=== PATIENT | female | born 1965 | race Caucasian/White ===

== ENCOUNTER 2020-12-16 13:56 | Inpatient (IN) | payer BC ==
[2020-12-16] MEDS ORDERED: KETOROLAC 15 MG/ML 1 ML VIAL IVP STA (14:17)
[2020-12-16] MEDS ORDERED: SODIUM CHLORIDE 0.9% 1,000 ML IV STA (14:17)
--- NOTE | 2020-12-16 14:37 | ED ---
Weakness HPI - General Chief complaint: Weakness Stated complaint: Weakness Time Seen by Provider: 12/16/20 14:00 Source: patient, EMS Mode of arrival: EMS Limitations: no limitations - History of Present Illness Initial comments: Patient is a 55-year-old female presenting to the emergency department via EMS with complaints of weakness and increasing over the past week and a half. Patient has extensive history of cervical and lumbar back fusions. She's been dealing with back pain for many years. Her is here with her now on helping with history. states that over the past week and a half she's had trouble walking, unable to get upstairs to use the restroom and were the shower is. She states she normally shuffles around the house and able to get up and down the stairs but this is changed over the past week and a half. Last w crow she did have a fall where she just felt weak and just dropped to the floor. She did not hit her head. She states she was able to get up and then just go to bed. She did not want to be seen at that time. She is complaining of increase in her neck pain over the last 3-4 days. She's been unable to eat or drink and she doesn't have an appetite. The states she will not eat when offered. There has been no fevers or chills, no nausea or vomiting. No chest pain or shortness of breath. She denies any bowel or bladder incontinence. She denies any saddle paresthesias. She is describing some numbness in her lower extremities but she states she's had this for many years. She states only medication she takes is for anxiety. She takes Tylenol for pain, she denies any other drug use. She has no further complaints at this time. - Related Data Home Medications Medication Instructions Recorded Confirmed DULoxetine HCL [Cymbalta] 60 mg PO HS 12/16/20 12/16/20 Allergies Allergy/AdvReac Type Severity Reaction Status Date / Time bupropion [From Zyban] Allergy Rash/Hives Verified 12/16/20 15:18 Review of Systems ROS Statement: Those systems with pertinent positive or pertinent negative responses have been documented in the HPI. ROS Other: All systems not noted in ROS Statement are negative. Past Medical History Additional Past Medical History / Comment(s): Not able to take any INFO History of Any Multi-Drug Resistant Organisms: None Reported Additional Past Surgical History / Comment(s): Not able to take any INFO Past Psychological History: Depression Smoking Status: Unknown if ever smoked Past Alcohol Use History: Unable to Obtain Past Drug Use History: Unable to Obtain General Exam - General Exam Comments Initial Comments: GENERAL: Patient is well-developed and well-nourished. Patient is nontoxic and in mild distress. HEAD: Atraumatic, normocephalic. There is no hematoma, no signs of basal skull fracture. EYES: Pupils equal round and reactive to light, extraocular movements intact, sclera anicteric, conjunctiva are normal. Eyelids were unremarkable. ENT: TMs normal, nares patent, oropharynx clear without exudates. Moist mucous membranes. NECK: Normal range of motion, supple without lymphadenopathy or JVD. She does have some bilateral cervical paraspinal soreness. LUNGS: Unlabored respirations. Breath sounds clear to auscultation bilaterally and equal. No wheezes rales or rhonchi. HEART: Tachycardia rate and rhythm without murmurs, rubs or gallops. ABDOMEN: Soft, nontender, normoactive bowel sounds. No guarding, no rebound. No masses appreciated. : Deferred MUSCULOSKELETAL: Patient has weakness of bilateral lower extremities, decreased active range of motion, strength is 4-5 bilaterally. Patient is barely able to lift legs off the bed. No clubbing or cyanosis. 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 Patient has full active range of motion of bilateral upper extremity. NEUROLOGICAL: Patient is alert and oriented x 3. Motor and sensory are also intact. Cranial nerves II through XII grossly intact. Symmetrical smile. Normal speech. PSYCH: Normal mood, normal affect. SKIN: Warm, Dry, normal turgor, no rashes or lesions noted. Limitations: no limitations Course Vital Signs 12/16/20 12/16/20 12/16/20 14:00 15:05 16:00 Temperature 96.1 F L Pulse Rate 111 H 100 96 Respiratory 20 16 16 Rate Blood Pressure 104/91 115/93 O2 Sat by Pulse 100 99 99 Oximetry 12/16/20 12/16/20 17:00 17:26 Temperature 96.1 F L Pulse Rate 88 100 Respiratory 16 16 Rate Blood Pressure 115/93 115/93 O2 Sat by Pulse 99 99 Oximetry EKG Findings - EKG Comments: EKG Findings:: Sinus tachycardia, biatrial enlargement, nonspecific ST and T- wave abnormalities, no signs of an acute ischemia. No previous to compare. Ventricular rate 111, NJ interval 122, QT 344. Medical Decision Making - Medical Decision Making Patient is a 55-year-old female with history of spinal fusion cervical and lumbar area, presenting for increased weakness over the past week and a half. He has been unable to ambulate for the past few days. Vital signs are stable, no fevers. Patient has a white count of 12.6, lactic acid is 4.4, troponin is negative. We did attempt a straight cath for urine however we were not able to get any urine. I did give her a total of 1.5 L bolus of fluids. I do not believe her lactic acid is elevated due to infection, this is most likely from dehydration. She has not been able to eat or drink over the past few days. CT of head and C-spine show no acute abnormality. Patient will be admitted for weakness, lactic acidosis, dehydration, unable to ambulate. Patient accepted by Dr. Cabrera. I will put ortho on consult. Patient is in agreement with this plan of care. We will keep trying for a urine. Case discussed with Dr. Rae. - Lab Data Result diagrams: 12/16/20 14:37 12/16/20 14:37 Lab Results 12/16/20 12/16/20 12/16/20 Range/Units 14:37 14:37 14:37 WBC 12.6 H (3.8-10.6) k/uL RBC 3.74 L (3.80-5.40) m/uL Hgb 15.0 (11.4-16.0) gm/dL Hct 45.6 (34.0-46.0) % MCV 121.8 H (80.0-100.0) fL MCH 40.1 H (25.0-35.0) pg MCHC 32.9 (31.0-37.0) g/dL RDW 14.7 (11.5-15.5) % Plt Count 193 (150-450) k/uL MPV 10.0 Neutrophils % 85 % Lymphocytes % 8 % Monocytes % 5 % Eosinophils % 1 % Basophils % 0 % Neutrophils # 10.7 H (1.3-7.7) k/uL Lymphocytes # 1.1 (1.0-4.8) k/uL Monocytes # 0.6 (0-1.0) k/uL Eosinophils # 0.1 (0-0.7) k/uL Basophils # 0.0 (0-0.2) k/uL Manual Slide Review Performed Macrocytosis Marked A ESR 2 (0-20) mm/hr PT 10.3 (9.0-12.0) sec INR 1.0 (<1.2) APTT 19.1 L (22.0-30.0) sec Sodium 137 (137-145) mmol/L Potassium 3.9 (3.5-5.1) mmol/L Chloride 103 (98-107) mmol/L Carbon Dioxide 14 L (22-30) mmol/L Anion Gap 20 mmol/L BUN 18 H (7-17) mg/dL Creatinine 0.61 (0.52-1.04) mg/dL Est GFR (CKD-EPI)AfAm >90 (>60 ml/min/1.73 sqM) Est GFR (CKD-EPI)NonAf >90 (>60 ml/min/1.73 sqM) Glucose 126 H (74-99) mg/dL Lactic Ac Sepsis Rflx Plasma Lactic Acid Vadim (0.7-2.0) mmol/L Calcium 9.3 (8.4-10.2) mg/dL Magnesium 1.7 (1.6-2.3) mg/dL Total Bilirubin 1.2 (0.2-1.3) mg/dL AST 86 H (14-36) U/L ALT 52 H (4-34) U/L Alkaline Phosphatase 109 (38-126) U/L Troponin I (0.000-0.034) ng/mL C-Reactive Protein 0.8 (<1.0) mg/dL Total Protein 6.9 (6.3-8.2) g/dL Albumin 3.6 (3.5-5.0) g/dL Lipase 35 (23-300) U/L Coronavirus (PCR) (Not Detectd) 12/16/20 12/16/20 12/16/20 Range/Units 14:37 14:37 14:37 WBC (3.8-10.6) k/uL RBC (3.80-5.40) m/uL Hgb (11.4-16.0) gm/dL Hct (34.0-46.0) % MCV (80.0-100.0) fL MCH (25.0-35.0) pg MCHC (31.0-37.0) g/dL RDW (11.5-15.5) % Plt Count (150-450) k/uL MPV Neutrophils % % Lymphocytes % % Monocytes % % Eosinophils % % Basophils % % Neutrophils # (1.3-7.7) k/uL Lymphocytes # (1.0-4.8) k/uL Monocytes # (0-1.0) k/uL Eosinophils # (0-0.7) k/uL Basophils # (0-0.2) k/uL Manual Slide Review Macrocytosis ESR (0-20) mm/hr PT (9.0-12.0) sec INR (<1.2) APTT (22.0-30.0) sec Sodium (137-145) mmol/L Potassium (3.5-5.1) mmol/L Chloride (98-107) mmol/L Carbon Dioxide (22-30) mmol/L Anion Gap mmol/L BUN (7-17) mg/dL Creatinine (0.52-1.04) mg/dL Est GFR (CKD-EPI)AfAm (>60 ml/min/1.73 sqM) Est GFR (CKD-EPI)NonAf (>60 ml/min/1.73 sqM) Glucose (74-99) mg/dL Lactic Ac Sepsis Rflx Plasma Lactic Acid Vadim 4.4 H* (0.7-2.0) mmol/L Calcium (8.4-10.2) mg/dL Magnesium (1.6-2.3) mg/dL Total Bilirubin (0.2-1.3) mg/dL AST (14-36) U/L ALT (4-34) U/L Alkaline Phosphatase (38-126) U/L Troponin I <0.012 (0.000-0.034) ng/mL C-Reactive Protein (<1.0) mg/dL Total Protein (6.3-8.2) g/dL Albumin (3.5-5.0) g/dL Lipase (23-300) U/L Coronavirus (PCR) Not Detected (Not Detectd) 12/16/20 Range/Units 14:55 WBC (3.8-10.6) k/uL RBC (3.80-5.40) m/uL Hgb (11.4-16.0) gm/dL Hct (34.0-46.0) % MCV (80.0-100.0) fL MCH (25.0-35.0) pg MCHC (31.0-37.0) g/dL RDW (11.5-15.5) % Plt Count (150-450) k/uL MPV Neutrophils % % Lymphocytes % % Monocytes % % Eosinophils % % Basophils % % Neutrophils # (1.3-7.7) k/uL Lymphocytes # (1.0-4.8) k/uL Monocytes # (0-1.0) k/uL Eosinophils # (0-0.7) k/uL Basophils # (0-0.2) k/uL Manual Slide Review Macrocytosis ESR (0-20) mm/hr PT (9.0-12.0) sec INR (<1.2) APTT (22.0-30.0) sec Sodium (137-145) mmol/L Potassium (3.5-5.1) mmol/L Chloride (98-107) mmol/L Carbon Dioxide (22-30) mmol/L Anion Gap mmol/L BUN (7-17) mg/dL Creatinine (0.52-1.04) mg/dL Est GFR (CKD-EPI)AfAm (>60 ml/min/1.73 sqM) Est GFR (CKD-EPI)NonAf (>60 ml/min/1.73 sqM) Glucose (74-99) mg/dL Lactic Ac Sepsis Rflx Y Plasma Lactic Acid Vadim (0.7-2.0) mmol/L Calcium (8.4-10.2) mg/dL Magnesium (1.6-2.3) mg/dL Total Bilirubin (0.2-1.3) mg/dL AST (14-36) U/L ALT (4-34) U/L Alkaline Phosphatase (38-126) U/L Troponin I (0.000-0.034) ng/mL C-Reactive Protein (<1.0) mg/dL Total Protein (6.3-8.2) g/dL Albumin (3.5-5.0) g/dL Lipase (23-300) U/L Coronavirus (PCR) (Not Detectd) Disposition Clinical Impression: Weakness, Unable to ambulate, Lactic acidosis, Dehydration Disposition: ADMITTED IP TO THIS [facility] Condition: Stable Decision Date: 12/16/20 Decision Time: 16:09
[2020-12-16 14:44] LABS: Basophils % (A) 0 %; Eosinophils # (A) 0.1 k/uL (0-0.7); Eosinophils % (A) 1 %; HCT 45.6 % (34.0-46.0); Lymphocytes # (A) 1.1 k/uL (1.0-4.8); Lymphocytes % (A) 8 %; MCH 40.1 pg (25.0-35.0); MCHC 32.9 g/dL (31.0-37.0); MCV 121.8 fL (80.0-100.0); Macrocytosis Marked; Monocytes # (A) 0.6 k/uL (0-1.0); Monocytes % (A) 5 %; Neutrophils # (A) 10.7 k/uL (1.3-7.7); Neutrophils % (A) 85 %; Platelet Count 193 k/uL (150-450); RBC 3.74 m/uL (3.80-5.40); RDW 14.7 % (11.5-15.5); WBC 12.6 k/uL (3.8-10.6)
[2020-12-16 14:54] LABS: ALT 52 U/L (4-34); AST 86 U/L (14-36); African American GFR (CKD) >90 (>60 ml/min/1.73 sqM); Albumin 3.6 g/dL (3.5-5.0); Alkaline Phosphatase 109 U/L (38-126); Anion Gap 20 mmol/L; Blood Urea Nitrogen 18 mg/dL (7-17); C Reactive Protein 0.8 mg/dL (<1.0); Calcium 9.3 mg/dL (8.4-10.2); Carbon Dioxide 14 mmol/L (22-30); Chloride 103 mmol/L (98-107); Glucose 126 mg/dL (74-99); Lipase 35 U/L (23-300); Magnesium 1.7 mg/dL (1.6-2.3); Non-African American GFR(CKD) >90 (>60 ml/min/1.73 sqM); Potassium 3.9 mmol/L (3.5-5.1); Sodium 137 mmol/L (137-145); Total Bilirubin 1.2 mg/dL (0.2-1.3); Total Protein 6.9 g/dL (6.3-8.2)
[2020-12-16] MEDS ORDERED: SODIUM CHLORIDE 0.9% 500 ML 500 ML IV STA (15:03)
[2020-12-16 15:13] LABS: Prothrombin Time 10.3 sec (9.0-12.0)
[2020-12-16 15:14] LABS: Partial Thromboplastin Time 19.1 sec (22.0-30.0)
[2020-12-16 15:35] LABS: Erythrocyte Sedimentation Rate 2 mm/hr (0-20)
--- NOTE | 2020-12-16 15:39 | CT ---
EXAMINATION TYPE: CT brain cspine wo con DATE OF EXAM: 12/16/2020 COMPARISON: NONE HISTORY: Fall injury with weakness and neck pain. CT DLP: 1288.2 mGycm. Automated Exposure Control for Dose Reduction was Utilized. TECHNIQUE: CT scan of the head and cervical spine are performed without contrast. FINDINGS: There is no acute intracranial hemorrhage or midline shift identified. Mild ventricular a nd sulcal prominence. The globes are intact and the visualized sinuses are clear. The calvarium is i ntact. Cervical spine is visualized in its entirety from C1 through upper thoracic levels and demonstrates s atisfactory alignment without evidence of acute fracture or dislocation. Prevertebral soft tissue ap pears within normal limits. The C1-C2 articulation is within normal limits on the coronal images. A nterior fusion plate and artificial disc material C5-C7 levels. Moderate disc space narrowing with pr ominent spurring C4-C5 level. Axial images show multilevel uncovertebral facet degenerative changes c ontributing to multilevel bilateral neural foraminal narrowing. Thyroid gland appears within normal l imits. Lung apices show moderate emphysematous change but no pneumothorax. IMPRESSION: 1. There is no acute fracture or dislocation evident in the cervical spine. 2. No acute intracranial hemorrhage or midline shift is seen.
[2020-12-16] MEDS ORDERED: ACETAMINOPHEN TAB 325 MG TAB PO PRN (16:05)
[2020-12-16] MEDS ORDERED: MORPHINE SULFATE 4 MG/ML SYRINGE IV PRN (16:05)
[2020-12-16] MEDS ORDERED: NALOXONE 0.4 MG/ML 1 ML VIAL IV PRN (16:05)
[2020-12-16] MEDS ORDERED: IBUPROFEN 400 MG TAB PO PRN (16:05)
[2020-12-16] MEDS ORDERED: ONDANSETRON 4 MG/2 ML VIAL IVP PRN (16:05)
[2020-12-16 17:25] LABS: Appearance,Urine Clear (Clear); Bacteria,Urine Many /hpf; Bilirubin,Urine 1+ (Negative); Blood,Urine Negative (Negative); Color,Urine Dark Brown; Glucose,Urine (UA) Negative (Negative); Hyaline Casts,Urine 7 /lpf (0-2); Ketones,Urine 4+ (Negative); Leukocyte Esterase,Urine Small (Negative); Mucus,Urine Occasional /hpf; Nitrite,Urine Positive (Negative); PH, Urine 5.5 (5.0-8.0); Protein,Urine 1+ (Negative); RBC,Urine 1 /hpf (0-5); Specific Gravity,Urine 1.022 (1.001-1.035); Squamous Epithelial Cell,Urine <1 /hpf (0-4); WBC,Urine 4 /hpf (0-5)
[2020-12-16] MEDS: SODIUM CHLORIDE 0.9% 1,000 ML IV SCH (18:27)
--- NOTE | 2020-12-16 20:46 | P.HPIM ---
History of Present Illness H&P Date: 12/16/20 Chief Complaint: Difficulty walking History of presenting complaint: This is a 55-year-old patient follows with . Patient is accompanied by her . Patient's had back pain problem for years. She had a cervical spine surgery about 3 years ago and number spine surgery about [address] Sanchez. At her baseline patient does walk slowly without any support. About 10 days ago patient started complaining of pain in the middle of the back. Also noticed progressive weakness of the legs. Her hobbies ago she started having increasing neck pain. also notices same time having some slurred speech. She's always had some tremor which is not exacerbated. Denies any change in bowel or bladder pattern. No trouble swallowing Review of systems: GEN.: Tired EYES: None HEENT: None NECK: None RESPIRATORY: None CARDIOVASCULAR: None GASTROINTESTINAL: None GENITOURINARY: None MUSCULOSKELETAL: Some joint pains LYMPHATICS: None HEMATOLOGICAL: None PSYCHIATRY: None NEUROLOGICAL: As above Past medical history to include: Cervical spine or lumbar surgery. Chronic kidney dysfunction Social history: Smokes half a pack a day for many years. Family history: Reviewed, noncontributory to presentation Physical examination: VITAL SIGNS: 96.1, 100, 16, 115/93, 99% room air GENERAL: BMI 23.2, laying in bed, tired. EYES: Pupils equal. Conjunctiva normal. HEENT: External appearance of nose and ears normal, oral cavity grossly normal. NECK: JVD not raised; masses not palpable. HEART: First and second heart sounds are normal; no edema. LUNGS:[ Respiratory rate normal; decreased breath sounds. ABDOMEN: Soft, nontender, liver spleen not palpable, no masses palpable. PSYCH: Alert and oriented x3; mood and affect anxiousl. NEUROLOGICAL: [Cranial nerves grossly intact; no facial asymmetry, tremors worse on the right side. Intermittent. Straight leg raising on the left side about 50 on the right side about 50. Decreased sensation in both lower extremity. Reflexes are not hyperactive. Decreased power in both the handgrip. Decreased sensation in the hand. LYMPHATICS: No lymph nodes palpable in the axilla and neck INVESTIGATIONS, reviewed in the clinical context: WBC 12.6 hemoglobin 15 platelets 193 potassium 3.9 creatinine 0.61 lactic acid 4.4 AST 86 ALT 52 troponin I less than 0.012 UA positive for nitrite, esterase, bacteria Coronavirus [PCR]-not detected EKG tracing personally reviewed by me shows sinus rhythm nonspecific ST segment changes Computed tomography scan of the brain C-spine without contrast: Anterior fusion plate and artificial disc material C5-C7 levels. Moderate disc space narrowing with prominent spurring C4-C5 level. Moderate impression minutes changes. No acute fracture or dislocation reported. Assessment and plan: -This is a patient is had cervical spine surgery about 3 years ago and lumbar spine surgery about 8 years ago. At her baseline patient walks slowly. Patient presents now with 10 days of mid thoracic pain and 2-1/2 days of increasing cervical spine pain. Patient is gait has become progressively weaker and barely able to walk now. Patient has decreased sensation. 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 Interestingly patient also got some slurring of the speech. Computed tomography scan is unremarkable. Patient be placed on aspirin. Consultation made to neurology and neurosurgery Dr. Gee to hold the patient is well known. -Acute on chronic gait dysfunction. Fall precautions -Chronic tickle dependence patient cigarette smoker Nicotine patch -Emphysema in a current smoker, asymptomatic -Macrocytosis Will check B12 and iron studies Plan care was discussed with the patient and the of the bedside. Consultation to neurosurgery Dr. Gee. Lovenox for DVT prophylaxis. Pain control. Bed rest. Patient will need further studies of the spine and lumbar spine and the brain. The meantime will also order carotid Doppler 2-D echocardiogram. Given the complexity and severity of patient's condition expect the patient to be in the hospital at least for 2 overnights Past Medical History Additional Past Medical History / Comment(s): Not able to take any INFO History of Any Multi-Drug Resistant Organisms: None Reported Additional Past Surgical History / Comment(s): Not able to take any INFO Past Psychological History: Depression Smoking Status: Unknown if ever smoked Past Alcohol Use History: Unable to Obtain Past Drug Use History: Unable to Obtain Medications and Allergies Home Medications Medication Instructions Recorded Confirmed Type DULoxetine HCL [Cymbalta] 60 mg PO HS 12/16/20 12/16/20 History Allergies Allergy/AdvReac Type Severity Reaction Status Date / Time bupropion [From Zyban] Allergy Rash/Hives Verified 12/16/20 15:18 Physical Exam Vitals: Vital Signs Temp Pulse Pulse Resp BP BP Pulse Ox 12/16/20 20:07 98.4 F 114 H 18 134/85 99 12/16/20 18:16 97.7 F 112 H 16 136/86 97 12/16/20 17:26 96.1 F L 100 16 115/93 99 12/16/20 17:00 88 16 115/93 99 12/16/20 16:00 96 16 99 12/16/20 15:05 100 16 115/93 99 12/16/20 14:00 96.1 F L 111 H 20 104/91 100 Intake and Output 12/16/20 12/16/20 12/16/20 06:59 14:59 22:59 Other: # Voids 1 # Emeses 1 Weight 61.235 kg Results CBC & Chem 7: 12/16/20 14:37 12/16/20 14:37 Labs: Abnormal Lab Results - Last 24 Hours (Table) 12/16/20 12/16/20 12/16/20 Range/Units 14:37 14:37 14:37 WBC 12.6 H (3.8-10.6) k/uL RBC 3.74 L (3.80-5.40) m/uL MCV 121.8 H (80.0-100.0) fL MCH 40.1 H (25.0-35.0) pg Neutrophils # 10.7 H (1.3-7.7) k/uL Macrocytosis Marked A APTT 19.1 L (22.0-30.0) sec Carbon Dioxide 14 L (22-30) mmol/L BUN 18 H (7-17) mg/dL Glucose 126 H (74-99) mg/dL Plasma Lactic Acid Vadim (0.7-2.0) mmol/L AST 86 H (14-36) U/L ALT 52 H (4-34) U/L Urine Protein (Negative) Urine Ketones (Negative) Urine Nitrite (Negative) Urine Bilirubin (Negative) Ur Leukocyte Esterase (Negative) Urine Bacteria (None) /hpf Hyaline Casts (0-2) /lpf Urine Mucus (None) /hpf 12/16/20 12/16/20 12/16/20 Range/Units 14:37 17:14 17:15 WBC (3.8-10.6) k/uL RBC (3.80-5.40) m/uL MCV (80.0-100.0) fL MCH (25.0-35.0) pg Neutrophils # (1.3-7.7) k/uL Macrocytosis APTT (22.0-30.0) sec Carbon Dioxide (22-30) mmol/L BUN (7-17) mg/dL Glucose (74-99) mg/dL Plasma Lactic Acid Vadim 4.4 H* 3.0 H* (0.7-2.0) mmol/L AST (14-36) U/L ALT (4-34) U/L Urine Protein 1+ H (Negative) Urine Ketones 4+ H (Negative) Urine Nitrite Positive H (Negative) Urine Bilirubin 1+ H (Negative) Ur Leukocyte Esterase Small H (Negative) Urine Bacteria Many H (None) /hpf Hyaline Casts 7 H (0-2) /lpf Urine Mucus Occasional H (None) /hpf
[2020-12-16] MEDS: DULoxetine HCL 60 MG CAPSULE.DR PO SCH (21:10)
[2020-12-16] MEDS: ALPRAZolam 0.5 MG TAB PO PRN (21:10)
[2020-12-16] MEDS: ENOXAPARIN 40 MG/0.4 ML SYRINGE SQ SCH (21:12)
[2020-12-16] MEDS: NICOTINE 14MG/24HR PATCH TRANSDERM SCH (21:20)
--- NOTE | 2020-12-16 23:42 | US ---
EXAMINATION TYPE: US carotid duplex BILAT DATE OF EXAM: 12/16/2020 COMPARISON: CT CLINICAL HISTORY: Slurred speech. Slurred speech. Smoker. EXAM MEASUREMENTS: RIGHT: Peak Systolic Velocity (PSV) cm/sec ----- Right CCA: 52.9 ----- Right ICA: 82.3 ----- Right ECA: 67.8 ICA/CCA ratio: 1.6 RIGHT: End Diastole cm/sec ----- Right CCA: 14.4 ----- Right ICA: 32.5 ----- Right ECA: 18.7 LEFT: Peak Systolic Velocity (PSV) cm/sec ----- Left CCA: 50.7 ----- Left ICA: 61.4 ----- Left ECA: 52.8 ICA/CCA ratio: 1.2 LEFT: End Diastole cm/sec ----- Left CCA: 15.9 ----- Left ICA: 25.1 ----- Left ECA: 16.1 VERTEBRALS (direction of flow): Right Vertebral: Antegrade Left Vertebral: Unable to visualize at this time. Rhythm: ?Tachycardia appearance IMPRESSION: No flow is identified in the left vertebral artery. The images and measurements suggest less than 20% stenosis in both internal carotid arteries. No sign ificant plaque formation. Criteria for Assigning % of Stenosis / Diameter reduction (Estimation based on the indirect measurements of the internal carotid artery velocities (ICA PSV). 1. Normal (no stenosis)=ICA PSV < 125 cm/s: ratio < 2.0: ICA EDV<40 cm/s. 2. Less than 50% stenosis=ICA PSV < 125 cm/s: ratio < 2.0: ICA EDV<40 cm/s. 3. 50 to 69% stenosis=ICA PSV of 125 to 230 cm/s: ration 2.0 ? 4.0: ICA EDV 40-100 cm/s. 4. Greater than 70% stenosis to near occlusion= ICA PSV > 230 cm/s: ratio > 4.0: ICA EDV > 100 cm/s. 5. Near occlusion= ICA PSV velocities may be low or undetectable: variable ratio and ICA EDV. 6. Total occlusion=unable to detect flow.
[2020-12-17] MEDS: KETOROLAC 15 MG/ML 1 ML VIAL IVP PRN ×3 (00:28→20:30)
[2020-12-17] MEDS: SODIUM CHLORIDE 0.9% 1,000 ML IV SCH ×2 (06:54→17:58)
[2020-12-17] MEDS: ENOXAPARIN 40 MG/0.4 ML SYRINGE SQ SCH (08:04)
[2020-12-17] MEDS: NICOTINE 14MG/24HR PATCH TRANSDERM SCH (08:04)
--- NOTE | 2020-12-17 08:55 | P.CNOR ---
History of Present Illness - [facility] Consult date: 12/17/20 Consult reason: other History of present illness: The patient Is a 55-year-old female who is now having new onset over the past 10-14 days of global weakness. I had seen the patient more than 10 years ago at which time she was having significant lumbar issues with stenosis and lower extremity radiculopathy. The patient underwent surgical intervention on her lumbar spine with our service over 10 years ago and says that she did very well with that and was able to go to the [place] and do hiking and spent time with her family without significant restrictions. She says that about 3 years ago she had surgery on her cervical spine at a different location with another service after she had an injury at her neck after bending over. She says that her neck never really felt better after that. Nonetheless she was able to mobilize and walk about. She says that just 2 weeks ago she was able to walk up and down the stairs. She has been able to get around without any assistance until the past week and a half or so. She said that she had sudden onset of weakness at her legs with any prolonged standing and moving. She says that she has had some issues and her upper extremities which have been worsening for her as well. She feels weak at her bilateral upper and lower extremities. She feels that she is slurring her speech. She denies any vision changes. She denies any changes in her medicati ons or new drug use. She says that she has been having some pain at her neck but that is moderate and adequately controlled for her. She denies changes in bowel bladder function. She denies any shortness of breath or chest pain. She says her mouth feels very dry and she has difficulty moving her tongue around. Review of Systems As stated in HPI. She denies any fevers chills. She denies any new drug use or change in her medication. She normally was a community and later without any assistance however now she is unable to stand up on her own over the past 1-2 weeks and she feels is worsening for her. She denies any changes in bowel bladder function. She denies any chest pain or shortness of breath. She admits to slurred speech. She denies any vision changes. Denies any hearing changes. Past Medical History Past Medical History: Musculoskeletal Disorder Additional Past Medical History / Comment(s): Lumbar surgery over [address] Sanchez for which she feels that she was doing well. Cervical spine surgery possibly 3 years ago at outside institution for which she feels she had minimal benefit. History of Any Multi-Drug Resistant Organisms: None Reported Past Surgical History: Back Surgery, Section Additional Past Surgical History / Comment(s): Not able to take any INFO Past Anesthesia/Blood Transfusion Reactions: No Reported Reaction Past Psychological History: Depression Smoking Status: Unknown if ever smoked Past Alcohol Use History: Unable to Obtain Past Drug Use History: Unable to Obtain Medications and Allergies Home Medications Medication Instructions Recorded Confirmed Type DULoxetine HCL [Cymbalta] 60 mg PO HS 12/16/20 12/16/20 History Allergies Allergy/AdvReac Type Severity Reaction Status Date / Time bupropion [From Zyban] Allergy Rash/Hives Verified 12/16/20 15:18 Physical Examination Osteopathic Statement: *. No significant issues noted on an osteopathic structural exam other than those noted in the History and Physical/Consult. - C Spine: dermatomal strength & reflexes bilateral Shoulder strength: flexion: 3/5 (Bilateral upper extremities her shoulders have some weakness worse on the left than the right. 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 She is able lift her legs up off the bed but with effort. She's not able to sustain against force. Her right lower extremity has 2/5 dorsiflexion. Left lower extremity has 4-5 dorsiflexion. There is no clonus. She has 3-4 out of 5 knee extension b) Strength: knee extension: 3/5 (3-4 out of 5 knee extension bilaterally) Strength: ankle dorsiflexion: 2/5 (Right lower extremity has 2 out of 5 dorsiflexion left lower extremity has 4-5 dorsiflexion) Reflexes: knee reflex: grade 1 (No hyperreflexia and no clonus) Other reflexes: Babinski's: negative, clonus: negative Nerve tests: straight leg raising tests: negative, contralateral straight leg raising tests: negative Results - Labs Labs: Abnormal Lab Results - Last 24 Hours (Table) 12/16/20 12/16/20 12/16/20 Range/Units 14:37 14:37 14:37 WBC 12.6 H (3.8-10.6) k/uL RBC 3.74 L (3.80-5.40) m/uL MCV 121.8 H (80.0-100.0) fL MCH 40.1 H (25.0-35.0) pg Neutrophils # 10.7 H (1.3-7.7) k/uL Macrocytosis Marked A APTT 19.1 L (22.0-30.0) sec Carbon Dioxide 14 L (22-30) mmol/L BUN 18 H (7-17) mg/dL Glucose 126 H (74-99) mg/dL Plasma Lactic Acid Vadim (0.7-2.0) mmol/L AST 86 H (14-36) U/L ALT 52 H (4-34) U/L Urine Protein (Negative) Urine Ketones (Negative) Urine Nitrite (Negative) Urine Bilirubin (Negative) Ur Leukocyte Esterase (Negative) Urine Bacteria (None) /hpf Hyaline Casts (0-2) /lpf Urine Mucus (None) /hpf 12/16/20 12/16/20 12/16/20 Range/Units 14:37 17:14 17:15 WBC (3.8-10.6) k/uL RBC (3.80-5.40) m/uL MCV (80.0-100.0) fL MCH (25.0-35.0) pg Neutrophils # (1.3-7.7) k/uL Macrocytosis APTT (22.0-30.0) sec Carbon Dioxide (22-30) mmol/L BUN (7-17) mg/dL Glucose (74-99) mg/dL Plasma Lactic Acid Vadim 4.4 H* 3.0 H* (0.7-2.0) mmol/L AST (14-36) U/L ALT (4-34) U/L Urine Protein 1+ H (Negative) Urine Ketones 4+ H (Negative) Urine Nitrite Positive H (Negative) Urine Bilirubin 1+ H (Negative) Ur Leukocyte Esterase Small H (Negative) Urine Bacteria Many H (None) /hpf Hyaline Casts 7 H (0-2) /lpf Urine Mucus Occasional H (None) /hpf H & H 12/16/20 Range/Units 14:37 Hgb 15.0 (11.4-16.0) gm/dL Hct 45.6 (34.0-46.0) % Coagulation 12/16/20 Range/Units 14:37 INR 1.0 (<1.2) Result Diagrams: 12/16/20 14:37 12/16/20 14:37 - Diagnostic results CT scan - cervical: report reviewed, image reviewed (There is a cervical and had computed tomography scan which reports show no acute change. The patient has prior fusion at C5 6 C6 7 which appears to be solid. There is some adjacent lev el degeneration and osteophytic spurring at C4 5.) Assessment and Plan Assessment: Global upper and lower extremity weakness, acute Slurred speech, acute History of cervical fusion approximately 3 years ago at outside institution at C5 6 C6 7 which appears to be stable history of lumbar surgery approximately 10 years ago which was done here with our service and had been doing well Plan: Global upper and lower extremity weakness, acute Slurred speech, acute History of cervical fusion approximately 3 years ago at outside institution at C5 6 C6 7 which appears to be stable history of lumbar surgery approximately 10 years ago which was done here with our service and had been doing well It is difficult to specifically delineate the nature of the patient's right lower extremity weakness and slurred speech. She had computed tomography scan of her brain which showed no acute intracranial hemorrhage or midline shift. He r cervical spine did not show any new change but did show apparent stable fusion from C5 to C7 with some degeneration at C4 5. The computed tomography scan is not fully ascertain her neurologic structures of her cervical spine and I think with her acute changes that further imaging with MRI of the cervical spine is necessary. Many of her symptoms could be considered myelopathic in nature an MRI would help to evaluate this symptoms more fully. Cervical spine would not account for her changes with her speech however and she is counseled for acute workup with neurology for further workup and evaluation and treatment. She has bilateral lower extremity weakness. She is not having any cauda equina type symptoms in terms of her saddle or bowel or bladder function however I think that urgent evaluation of her lumbar spine is or to given her weakness and history of surgery. We'll order a new x-rays and MRI of lumbar spine as well. She had been started on aspirin by medicine service and I think it may be helpful to start on steroid medication to see if we can help her neurologic function. We will order this if it is okay with medicine and neurology service. We will continue to follow patient closely. Time with Patient: Greater than 30
--- NOTE | 2020-12-17 10:24 | XR ---
EXAMINATION TYPE: XR cervical spine limited DATE OF EXAM: 12/17/2020 TECHNIQUE: Frontal, lateral, and open mouth view of the cervical spine are obtained. HISTORY: h/o cervical fusion/ new weakness COMPARISON: CT one day earlier FINDINGS: Persistent anterior fusion plate and artificial disc material C5-C7 levels. Slight stable g rade 1 retrolisthesis C4 on C5. Moderate disc space narrowing C3-C4 and C4-C5 levels. Prominent anter ior spur inferior C4 level. Alignment stable and straightened. IMPRESSION: As above.
--- NOTE | 2020-12-17 10:28 | XR ---
EXAMINATION TYPE: XR lumbar spine 2 or 3V DATE OF EXAM: 12/17/2020 COMPARISON: None HISTORY: Lumbar fusion TECHNIQUE: 4 view lumbar spine FINDINGS: Pedicle screws are present L5-S1. Disc spacer may be present L5-S1. L1-L4 pedicles are inta ct. There are 5 lumbar-type vertebral bodies. There may be an S1-S2 disc space. Disc heights appear p reserved. Small Schmorl's node may be a L3. IMPRESSION: 1. Postsurgical changes with pedicle screws and a disc spacer in the lower lumbar spine.
[2020-12-17] MEDS: FAMOTIDINE 20 MG TAB PO SCH ×2 (11:30→20:31)
[2020-12-17] MEDS: methylPREDNISolone SOD SUCCI 125 MG/2 ML VIAL IV SCH ×2 (11:31→20:28)
--- NOTE | 2020-12-17 12:35 | ECHOF ---
Referral Reason:Rule out thrombus MEASUREMENTS -------- HEIGHT: 162.6 cm WEIGHT: 61.2 kg BP: IVSd: 0.9 cm (0.6 - 1.1) LVIDd: 3.3 cm (3.9 - 5.3) LVPWd: 1.1 cm (0.6 - 1.1) IVSs: 1.1 cm LVIDs: 2.2 cm LVPWs: 1.5 cm MV E Néstor: 0.70 m/s MV DecT: 223 ms MV A Néstor: 1.18 m/s MV E/A Ratio: 0.59 RAP: 5.00 mmHg RVSP: 10.09 mmHg FINDINGS -------- Sinus rhythm. This was a techncally difficult study with suboptimal views, , Lumason utilized for enhancement of im ages. LV size, wall thickness and systolic function are normal, with an EF greater than 55%. The left john tricular size is normal. The right ventricle is normal in size. The left atrial size is normal. The right atrial size is normal. 5.0mg OF Lumason UTLIZED: 2 OR MORE WALL SEGMENTS NOT VISUALIZED. The aortic valve was not well visualized. The mitral valve was not well visualized. The tricuspid valve was not well visualized. The pulmonic valve was not well visualized. The aortic root size is normal. There is no pericardial effusion. CONCLUSIONS -------- 1. This was a techncally difficult study with suboptimal views, , Lumason utilized for enhancement of images. 2. LV size, wall thickness and systolic function are normal, with an EF greater than 55%. 3. The left ventricular size is normal. 4. The right ventricle is normal in size. 5. The left atrial size is normal. 6. The right atrial size is normal. 7. 5.0mg OF Lumason UTLIZED: 2 OR MORE WALL SEGMENTS NOT VISUALIZED. 8. The aortic root size is normal. 9. There is no pericardial effusion. COMMERCIAL ANALYST: Amie Lu RDCS
--- NOTE | 2020-12-17 12:39 | P.CNNES ---
History of Present Illness Consult date: 12/17/20 Requesting physician: Niko Cabrera Reason for Consult: Slurred speech History of Present Illness: Patient is a 55-year-old female came to the hospital by ambulance yesterday at 1:56 PM. Came to the hospital for increasing weakness over the past week and a half. Patient has extensive history of cervical and lumbar back fusions. She has been dealing with back pain for many years. Patient states that she started having weakness of her body, left side slightly more than the right about 1-1/2 weeks ago. Also later slurred speech about a week ago. She denies any problem with vision. Patient states that she always used to walk with a shuffle but her got her wheelchair about 4 days ago as she was not walking very well. She has been using cane and sometimes for the last 2 months. When she was getting up stairs, she could not lift her left leg up. Patient states that she was very afraid of Covid 19, therefore did not seek medical attention earlier. In fact patient states that she has not left her home for last 3 years. Patient denies diabetes. Patient states that yesterday her neck was hurting bad, but today everything is hurting also pointing to the clavicular region bilaterally. Patient complains of severe constipation, also complains of pain in the suprapubic and left hypogastric region. Patient also has decrease frequency of urine, which she attributes to dehydration and lack of fluid intake. Patient's vitals on arrival blood pressure 104/91, pulse rate 111, temperature 96.1. Computed tomography scan of head showed no acute intracranial hemorrhage or midline shift. CT of the cervical spine showed no fracture or dislocation. EKG shows sinus tachycardia with biatrial enlargement. Nonspecific ST and T- wave abnormality. Carotid Doppler showed less than 20% stenosis in both ICA. Antegrade flow in the right vertebral artery, no flow seen in the left vertebral artery. Blood test shows normal hemoglobin, WBC 12.6, platelets 193. Patient has severe macrocytosis of 121.8. PT/PTT normal. Electrolytes are normal, renal functions normal. AST 86, ALT 52. Troponin negative. UA positive nitrite, small amount of leukocyte Estrace. Bautista virus PCR negative. Patient takes Cymbalta 60 mg daily. She does not take any antiplatelet medication. Patient lives with her . Denies diabetes. She has smoked 2-3 pack per day for 14 years, cutback to half a pack a day for last 3 weeks. Denies hypertension. Patient has 2 children who live close by. Review of Systems As mentioned above in detailed in HPI. Achiness significant gait dysfunction. Ataxia. Denies any chest pain, shortness of breath double vision loss of vision hearing loss, hoarseness. She has dry mouth. Decrease appetite. Past Medical History Past Medical History: Musculoskeletal Disorder Additional Past Medical History / Comment(s): Lumbar surgery over [address] Sanchez for which she feels that she was doing well. Cervical spine surgery possibly 3 years ago at outside institution for which she feels she had minimal benefit. History of Any Multi-Drug Resistant Organisms: None Reported Past Surgical History: Back Surgery, Section Additional Past Surgical History / Comment(s): Not able to take any INFO Past Anesthesia/Blood Transfusion Reactions: No Reported Reaction Past Psychological History: Depression Smoking Status: Unknown if ever smoked Past Alcohol Use History: Unable to Obtain Past Drug Use History: Unable to Obtain Medications and Allergies Home Medications Medication Instructions Recorded Confirmed Type DULoxetine HCL [Cymbalta] 60 mg PO HS 12/16/20 12/16/20 History Allergies Allergy/AdvReac Type Severity Reaction Status Date / Time bupropion [From Zyban] Allergy Rash/Hives Verified 12/16/20 15:18 Physical Examination - Vital Signs Vital Signs: Vital Signs Temp Pulse Pulse Resp BP BP Pulse Ox 12/17/20 05:00 97.6 F 120 H 18 112/79 98 12/16/20 20:07 98.4 F 114 H 18 134/85 99 12/16/20 18:16 97.7 F 112 H 16 136/86 97 12/16/20 17:26 96.1 F L 100 16 115/93 99 12/16/20 17:00 88 16 115/93 99 12/16/20 16:00 96 16 99 12/16/20 15:05 100 16 115/93 99 12/16/20 14:00 96.1 F L 111 H 20 104/91 100 Intake and Output 12/16/20 12/17/20 12/17/20 22:59 06:59 14:59 Other: Voiding Method Bedpan # Voids 1 2 # Bowel Movements 2 # Emeses 1 Weight 61.235 kg Patient is a middle aged female, in no acute distress. Patient is alert and awake, fairly sharp, but appears somewhat slow to respond. She appears generalized weak. Her mouth is dry and lips are slightly chapped. She has very poor dentition. Tongue is also dry. Patient is alert awake oriented to time place and person. Speech and language functions are normal. Attention, concentration and fund of knowledge is adequate. On cranial examination, pupils are round and reacting to light, visual ely are full on confrontation with no neglect on double simultaneous deletion, e xtraocular muscles are intact with no nystagmus. Face is symmetric, tongue protrudes to the midline. Palatal elevation and sensation normal, hearing and shoulder shrug normal, facial sensation normal. Shoulder shrug normal. On muscle strength testing, patient has right pronator drift. Patient appears generalized weak. However right/left deltoid 5-/4+5-, biceps 5/5, triceps 5/5, medication coordinator 5/5-. In the lower limbs hip flexion 3+4/3+4, hip adduction 5-/5-, hip abduction 4+/4+ knee extension 5/5, ankle dorsiflexion 5-/5-. Deep tendon reflexes are almost absent, and plantars are downgoing. Sensory to touch is severely decreased from toes although the up to upper thigh region bilaterally. Cerebellar function showed ataxia for [id number] as well as [id number] testing bilaterally, left side is much worse than right. Tone and bulk of muscles is overall decreased. Gait deferred. On general examination, there is no carotid bruit or murmur, S1-S2 audible. Abdomen is soft nontender. Chest is clear. Peripheral pulses are present. No edema. Results - Laboratory Findings CBC and BMP: 12/16/20 14:37 12/16/20 14:37 Abnormal Lab Findings: Abnormal Labs 12/16/20 12/16/20 12/16/20 14:37 14:37 14:37 WBC 12.6 H RBC 3.74 L MCV 121.8 H MCH 40.1 H Neutrophils # 10.7 H Macrocytosis Marked A APTT 19.1 L Carbon Dioxide 14 L BUN 18 H Glucose 126 H Plasma Lactic Acid Vadim AST 86 H ALT 52 H Urine Protein Urine Ketones Urine Nitrite Urine Bilirubin Ur Leukocyte Esterase Urine Bacteria Hyaline Casts Urine Mucus 0512/16/20 12/16/20 14:37 17:14 17:15 WBC RBC MCV MCH Neutrophils # Macrocytosis APTT Carbon Dioxide BUN Glucose Plasma Lactic Acid Vadim 4.4 H* 3.0 H* AST ALT Urine Protein 1+ H Urine Ketones 4+ H Urine Nitrite Positive H Urine Bilirubin 1+ H Ur Leukocyte Esterase Small H Urine Bacteria Many H Hyaline Casts 7 H Urine Mucus Occasional H Assessment and Plan Assessment: * 55-year-old female with subacute (1-1/2 week) history of progressive bilateral upper and lower extremity weakness/ataxia, left side worse than right, and some dysarthria. Patient also has severe sensory deficits in the legs all the way up to L2 dermatome. Rule out CVA, spinal cord compression, transverse myelitis, multiple sclerosis or other pathology. * Severe macrocytosis. Rule out B12 and folate deficiency. * Acute UTI * History of multiple back surgeries. Plan: * Patient has been seen by orthopedic surgery and MRI of the cervical and lumbar spines have been initiated. We will also add MRI of the brain with and without contrast to rule out CVA and, rule out demyelinating disease like multiple sclerosis. * B12, folate, TSH, MMA, B6. Also check KUMAR, CK, A1c, CARMELA, Lyme, Sjogren's and RPR. * We will follow.
[2020-12-17] MEDS: ALPRAZolam 0.5 MG TAB PO PRN ×2 (16:52→20:30)
--- NOTE | 2020-12-17 19:29 | P.PN ---
Progress Note - Text Progress Note Date: 12/17/20 Chief Complaint: Difficulty walking History of presenting complaint: This is a 55-year-old patient follows with . Patient is accompanied by her . Patient's had back pain problem for years. She had a cervical spine surgery about 3 years ago and number spine surgery about [address] Sanchez. At her baseline patient does walk slowly without any support. About 10 days ago patient started complaining of pain in the middle of the back. Also noticed progressive weakness of the legs. Her hobbies ago she started having increasing neck pain. also notices same time having some slurred speech. She's always had some tremor which is not exacerbated. Denies any change in bowel or bladder pattern. No trouble swallowing Today: Patient has undergone brain and cervical spine MRI. Results are pending. Symptoms persist. at the bedside. Weakness persist. Review of systems: Was done for constitutional, cardiovascular, GI, pulmonary. relevant finding as above Active Medications Acetaminophen (Acetaminophen Tab 325 Mg Tab) 650 mg PO Q6HR PRN PRN Reason: Mild Pain or Fever > 100.5 Alprazolam (Alprazolam 0.5 Mg Tab) 0.5 mg PO TID PRN PRN Reason: Anxiety Last Admin: 12/17/20 16:52 Dose: 0.5 mg Documented by: Duloxetine HCl (Duloxetine Hcl 60 Mg Capsule.) 60 mg PO HS [facility] Last Admin: 12/16/20 21:10 Dose: 60 mg Documented by: Enoxaparin Sodium (Enoxaparin 40 Mg/0.4 Ml Syringe) 40 mg SQ DAILY [facility] Last Admin: 12/17/20 08:04 Dose: 40 mg Documented by: Famotidine (Famotidine 20 Mg Tab) 20 mg PO BID [facility] Last Admin: 12/17/20 11:30 Dose: 20 mg Documented by: Sodium Chloride (Saline 0.9%) 1,000 mls @ 75 mls/hr IV .[id number] [facility] Last Admin: 12/17/20 17:58 Dose: Not Given Documented by: Ceftriaxone Sodium 1 gm/ (Sodium Chloride) 50 mls @ 100 mls/hr IVPB Q24H [facility] Last Admin: 12/16/20 21:21 Dose: 100 mls/hr Documented by: Ibuprofen (Ibuprofen 400 Mg Tab) 400 mg PO Q6HR PRN PRN Reason: Mild Pain or Fever > 100.5 Ketorolac Tromethamine (Ketorolac 15 Mg/Ml 1 Ml Vial) 15 mg IVP Q6HR PRN PRN Reason: Moderate Pain Stop: 12/19/20 16:08 Last Admin: 12/17/20 12:58 Dose: 15 mg Documented by: Methylprednisolone Sodium Succinate (Methylprednisolone Sod Succi 125 Mg/2 Ml Vial) 80 mg IV Q12HR [facility] Last Admin: 12/17/20 11:31 Dose: 80 mg Documented by: Morphine Sulfate (Morphine Sulfate 4 Mg/Ml Syringe) 4 mg IV Q4HR PRN PRN Reason: Severe Pain Last Admin: 12/17/20 04:33 Dose: 4 mg Documented by: Naloxone HCl (Naloxone 0.4 Mg/Ml 1 Ml Vial) 0.2 mg IV Q2M PRN PRN Reason: Opioid Reversal Nicotine (Nicotine 14mg/24hr Patch) 1 patch TRANSDERM DAILY [facility] Last Admin: 12/17/20 08:04 Dose: 1 patch Documented by: Ondansetron HCl (Ondansetron 4 Mg/2 Ml Vial) 4 mg IVP Q8HR PRN PRN Reason: Nausea And Vomiting Last Admin: 12/16/20 18:30 Dose: 4 mg Documented by: Oxybutynin Chloride (Oxybutynin Chloride 5 Mg Tab) 5 mg PO TID [facility] Past medical history to include: Cervical spine or lumbar surgery. Chronic kidney dysfunction Social history: Smokes half a pack a day for many years. Family history: Reviewed, noncontributory to presentation Physical examination: VITAL SIGNS: 97.5, 113, 16, 100/70, 98% room air GENERAL: laying in bed, tired. EYES: Pupils equal. Conjunctiva normal. HEENT: External appearance of nose and ears normal, oral cavity a bit dry NECK: JVD not raised; masses not palpable. HEART: First and second heart sounds are normal; no edema. LUNGS:[ Respiratory rate normal; decreased breath sounds. ABDOMEN: Soft, nontender, liver spleen not palpable, no masses palpable. PSYCH: Alert and oriented x3; mood and affect anxiousl. NEUROLOGICAL: [Cranial nerves grossly intact; no facial asymmetry, tremors worse on the right side. Intermittent. Straight leg raising on the left side about 50 on the right side about 50. Decreased sensation in both lower extremity. Reflexes are not hyperactive. Decreased power in both the handgrip. Decreased sensation in the hand. INVESTIGATIONS, reviewed in the clinical context: X-ray lumbar spine: Postsurgical changes. X-ray cervical spine: Anterior fusion plate at C5 C7. Moderate disc narrowing at C3-C4 and C4-C5. Prominent anterior spur at the inferior C4. Alignment stable. 2-D echocardiogram: EF greater than 55%. WBC 12.6 hemoglobin 15 platelets 193 potassium 3.9 creatinine 0.61 lactic acid 4.4 AST 86 ALT 52 troponin I less than 0.012 UA positive for nitrite, esterase, bacteria Coronavirus [PCR]-not detected EKG tracing personally reviewed by me shows sinus rhythm nonspecific ST segment changes Computed tomography scan of the brain C-spine without contrast: Anterior fusion plate and artificial disc material C5-C7 levels. Moderate disc space narrowing with prominent spurring C4-C5 level. Moderate impression minutes changes. No acute fracture or dislocation reported. Assessment and plan: -This is a patient is had cervical spine surgery about 3 years ago and lumbar spine surgery about 8 years ago. At her baseline patient walks slowly. Patient presents now with 10 days of mid thoracic pain and 2-1/2 days of increasing cervical spine pain. Patient is gait has become progressively weaker and barely able to walk now. Patient has decreased sensation. Also her oracle specialist is weak. Interestingly patient also got some slurring of the speech. Computed tomography scan is unremarkable. Patient be placed on aspirin. Pending brain MRI, cervical spine MRI. Solu-Medrol added by neurosurgery -Acute on chronic gait dysfunction.-Slow to respond Fall precautions -New onset dysarthria, rule out stroke -Chronic nicotine dependence patient cigarette smoker Nicotine patch -Emphysema in a current smoker, asymptomatic Follow clinically -Macrocytosis Will check B12 and iron studies -Acute UTI with cystitis On IV ceftriaxone Patient is pending further testing including results of brain MRI cervical spine. Follow with neurology and neurosurgery
--- NOTE | 2020-12-17 20:15 | MR ---
EXAMINATION TYPE: MR lumbar spine wo con DATE OF EXAM: 12/17/2020 COMPARISON: None HISTORY: Weakness, lumbar fusion Multiplanar multiecho imaging of the lumbar spine was performed without contrast. Lumbar vertebra have normal alignment. There is metal artifact from posterior fusion surgery at L4-5 with rods and screws. There is elongated 3 x 3X1 cm fluid collection posteriorly in the surgery site consistent with a seroma or chronic hematoma. There is mild narrowing of the disc spaces at L4-5 and L5-S1. There is no compression fracture. I see no bony destructive process. The lumbar neural foramina are fairly well-maintained. There is no spin al stenosis. Lumbar nerve roots appear normal. There is no lumbar paraspinal mass. IMPRESSION: Posterior fusion surgery. Small extradural seroma or chronic hematoma at the surgery site posteriorly . No spinal stenosis. No lumbar disc herniation.
[2020-12-17] MEDS: OXYBUTYNIN CHLORIDE 5 MG TAB PO SCH (20:31)
[2020-12-17] MEDS: DULoxetine HCL 60 MG CAPSULE.DR PO SCH (20:31)
--- NOTE | 2020-12-17 20:34 | MR ---
EXAMINATION TYPE: MR brain wo/w con DATE OF EXAM: 12/17/2020 COMPARISON: None HISTORY: Ataxia, slurred speech, evaluate for CVA, R/O MS. CONTRAST: Standard multiplanar, multisequence MRI departmental protocol utilizing 6.5 mL intravenous Gadavist g adolinium contrast. There is mild cerebral cortical atrophy. There is no mass effect nor midline shift. There is no sign of intracranial hemorrhage. The diffusion images show no evidence of an acute infarct. On the T2 and FLAIR images there are a few small foci of increased signal at the low-white matter junction of both cerebral hemispheres. Total number is approximately 5 and these measure up to 3 mm. The brainstem is intact. There is no evidence of orbital mass. Sella turcica is intact. Corpus callosum appears sindy l. IMPRESSION: Mild atrophy. There are a few scattered small white matter high signal foci of uncertain significance . This could relate to minimal microvascular ischemia. No evidence of cortical infarct. I do not see evidence for demyelinating disease.
--- NOTE | 2020-12-17 20:40 | MR ---
EXAMINATION TYPE: MR cervical spine wo/w con DATE OF EXAM: 12/17/2020 COMPARISON: None HISTORY: Weakness, hx cervical fusion CONTRAST: Standard multiplanar, multisequence MRI departmental protocol utilizing 6.5 mL intravenous Gadavist g adolinium contrast. Multiplanar multiecho imaging of the cervical spine was performed without and with IV contrast. Cervical vertebra have normal alignment. There is metal artifact from anterior fusion surgery at C5-6 and C6-7. I see no compression fracture. Cervical spinal cord has fairly normal signal pattern. Ther e is no edema. There is minimal posterior disc bulging at C3-4 and C4-5 without significant impingeme nt on the spinal canal. There is no evidence of any significant spinal stenosis. The brainstem is int act the posterior elements are intact. There is no evidence of cervical paraspinal mass. I see no bon y destructive process. Spinal canal measures 7.5 mm at C4-5 which is the narrowest point. IMPRESSION: Anterior fusion surgery. No spinal stenosis. No significant complicating process seen..
[2020-12-17 22:22] LABS: Hemoglobin A1C 4.8 % (4.0-6.0)
--- NOTE | 2020-12-17 22:28 | P.PN ---
Progress Note - Text Progress Note Date: 12/17/20 Cervical, Lumbar and Brain MRIs reviewed. no evidence of significant cervical or lumbar stenosis, cord change, or spinal compression. Cervical and lumbar fusions appear stable. Brain MRI with mild scattered white matter changes, but no evident of demyelinating disease, or mass or shift. Neurologic changes of undetermined etiology. Does not appear spinal in origin. No plans for spinal surgical intervention. Neurology and medicine workup continuing.
[2020-12-17 23:56] LABS: % Iron Saturation 21.18 (12.00-45.00); Ferritin 946.6 ng/mL (10.0-291.0)
[2020-12-18 04:48] LABS: Glucose,Whole Blood 71 mg/dL (75-99)
[2020-12-18] MEDS ORDERED: LORazepam 2 MG/ML INJ IV PRN ×3 (05:02)
--- NOTE | 2020-12-18 05:22 | P.EN ---
A team note Activated at 4:39 PM arrived at the scene shortly after. Reviewed the chart and discussed the case with the RN in detail. The patient was admitted to the hospital complaints of back pain and was subsequently found to have neuropathy. She was being evaluated by neurology and had undergone an extensive workup including brain and spinal cord MRI. Tonight, the patient was found to be unresponsive while looking off in a direction with her arm shaking. The patient's vitals upon arrival at the scene were BP 137/85, P 118, SpO2 100% on 2L NC. The patient reported feeling tired but otherwise denied active complaints. General: Chronically ill-appearing malnourished female, in no acute distress, appears older than stated age, normal weight HEENT: NC/AT, anicteric sclerae, moist conjunctiva, no lid-lag, PERRLA, mucous membranes very dry Cardiovascular: S1/S2 wnl, tachycardia, no murmurs, rubs, or gallops Lungs: Clear to auscultation, normal respiratory effort, no accessory muscle use Abdominal: Soft, non-tender, non-distended, no guarding, rebound, or rigidity Skin: Warm, dry Extremities: No edema or contractures Psychiatric: Lethargic, oriented to person and place, not oriented to time Neuro: Moving all extremities, slightly tremulous, tongue fasciculations noted, no tongue bites noted Assessment/plan Episode of unresponsiveness, suspected seizure -In light of patient's poor nutritional status, abnormal LFTs, tachycardia, and tremor, differential includes EtOH withdrawal, substance abuse, and primary seizure disorder -Thiamine IVP ordered -CIWA protocol -STAT labs ordered -1L NS Bolus ordered -Aspiration precautions -Primary notified by the RN -Hold off on anti-epileptics for now
[2020-12-18] MEDS ORDERED: SODIUM CHLORIDE 0.9% 1,000 ML IV ONE ×2 (05:24→10:03)
[2020-12-18 05:42] LABS: WBC 8.7 k/uL (3.8-10.6)
[2020-12-18 05:43] LABS: HCT 42.1 % (34.0-46.0); HGB 13.2 gm/dL (11.4-16.0); Hypochromasia Slight; MCH 38.7 pg (25.0-35.0); MCHC 31.4 g/dL (31.0-37.0); MCV 123.3 fL (80.0-100.0); Macrocytosis Marked; Mean Platelet Volume 10.5; Platelet Count 135 k/uL (150-450); RBC 3.41 m/uL (3.80-5.40); RDW 15.7 % (11.5-15.5)
[2020-12-18 05:51] LABS: ALT 38 U/L (4-34); AST 69 U/L (14-36); African American GFR (CKD) >90 (>60 ml/min/1.73 sqM); Albumin 2.1 g/dL (3.5-5.0); Albumin/Globulin Ratio 0.9; Alkaline Phosphatase 58 U/L (38-126); Anion Gap 14 mmol/L; Blood Urea Nitrogen 22 mg/dL (7-17); Calcium 7.8 mg/dL (8.4-10.2); Carbon Dioxide 11 mmol/L (22-30); Chloride 108 mmol/L (98-107); Globulin 2.3 g/dL; Glucose 79 mg/dL (74-99); Magnesium 1.3 mg/dL (1.6-2.3); Non-African American GFR(CKD) >90 (>60 ml/min/1.73 sqM); Sodium 133 mmol/L (137-145); Total Bilirubin 0.7 mg/dL (0.2-1.3); Total Protein 4.4 g/dL (6.3-8.2)
[2020-12-18 06:07] LABS: Neutrophils % (M) 93 %; Nucleated Red Blood Cells 0 /100 WBC (0-0)
[2020-12-18 06:10] LABS: Band Neutrophils % 4 %; Lymphocytes # (M) 0.17 k/uL (1.0-4.8); Monocytes # (M) 0.17 k/uL (0-1.0); Total Cells Counted 200
[2020-12-18 06:15] LABS: Glucose,Whole Blood 77 mg/dL (75-99)
[2020-12-18] MEDS ORDERED: SODIUM CHLORIDE 0.9% 500 ML 500 ML IV ONE (06:41)
[2020-12-18 07:04] LABS: Amphetamine Screen,Urine Not Detected (NotDetected); Barbiturate Screen,Urine Not Detected (NotDetected); Benzodiazepines Screen,Urine Detected (NotDetected); Cocaine Screen,Urine Not Detected (NotDetected); Methadone Screen, Urine Not Detected (NotDetected); Opiate Screen,Urine Detected (NotDetected); Oxycodone Screen, Urine Not Detected (NotDetected); Phencyclidine Screen,Urine Not Detected (NotDetected); Tricyclic Antidepressant,Urine Not Detected (NotDetected); Urn Cannabinoid Scrn Detected (NotDetected)
--- NOTE | 2020-12-18 08:43 | P.CNPUL ---
History of Present Illness Consult date: 12/18/20 Reason for consult: dyspnea, other Chief complaint: Hypotension and mottling of the lower extremity History of present illness: This is a 55-year-old female who was seen evaluated examined and fifth floor patient is being transferred to carrier clinic due to hypertension and mottling of the skin of lower extremity, patient is awake responding to verbal stimuli confused however, review of the data revealed that patient was admitted on December 16 with generalized weakness progressive for the last 10 days, patient has extensive history of spine surgery involving cervical and lumbar fusions, along with chronic back pain it appears that in addition to weakness she has difficulty walking patient was not able to get up stairs due to weakness in the lower extremity, past medical history significant for depression, spine surgery as well as neurosurgery has been evaluating the patient, her covert testing has been negative, she also noted to have elevated lactic acid of 4.4, in the hospital she was noted to have progressive dysarthria, UTI with cystitis, has been on IV Rocephin, status post MRI of the cervical spine which were negative for any significant pathology except MRI of the brain revealing scattered white matter changes, earlier this morning patient noted to be more unresponsive with eyes open she was tachycardic sats 100% on 2 L, blood pressure was 1 3795 however during my evaluation she was noted to have a blood pressure 80/50 with mottling of skin, lactic acid remains elevated, further data has been obtained patient does have a history of alcohol smoking and substance use and history of seizure disorder, stat labs done this morning white cell count is 8700 hemoglobin and hematocrit is 13.2, MCV is 123, with marked macrocytosis, lactic acid is however during 3.9, mildly elevated AST and ALT of 69 and 38, urine drug screen is positive for opiates, benzodiazepine, marijuana, Review of Systems ROS unobtainable: due to mental status Past Medical History Past Medical History: Musculoskeletal Disorder Additional Past Medical History / Comment(s): Lumbar surgery over [address] Sanchez for which she feels that she was doing well. Cervical spine surgery possibly 3 years ago at outside institution for which she feels she had minimal benefit. History of Any Multi-Drug Resistant Organisms: None Reported Past Surgical History: Back Surgery, Section Additional Past Surgical History / Comment(s): Not able to take any INFO Past Anesthesia/Blood Transfusion Reactions: No Reported Reaction Past Psychological History: Depression Smoking Status: Unknown if ever smoked Past Alcohol Use History: Unable to Obtain Past Drug Use History: Unable to Obtain Medications and Allergies Home Medications Medication Instructions Recorded Confirmed Type DULoxetine HCL [Cymbalta] 60 mg PO HS 12/16/20 12/16/20 History Allergies Allergy/AdvReac Type Severity Reaction Status Date / Time bupropion [From Zyban] Allergy Rash/Hives Verified 12/16/20 15:18 Physical Exam Vitals: Vital Signs Temp Pulse Resp BP Pulse Ox 12/18/20 05:00 100 12/17/20 20:21 97.6 F 117 H 14 109/75 99 12/17/20 12:21 97.5 F L 113 H 16 100/70 98 Intake and Output 12/17/20 12/18/20 12/18/20 22:59 06:59 14:59 Intake Total 650 Balance 650 Intake: Oral 650 Other: Voiding Method Bedpan Diaper # Voids 3 - Constitutional General appearance: average body habitus, disheveled, mild distress - EENT Eyes: EOMI, PERRLA Ears: bilateral: normal - Neck Neck: normal ROM Carotids: bilateral: upstroke normal - Respiratory Respiratory: bilateral: diminished - Cardiovascular Rhythm: regular Heart sounds: normal: S1, S2 - Gastrointestinal General gastrointestinal: decreased bowel sounds, distended, soft - Neurologic Refer to neurology evaluation and exam Neurologic: CNII-XII intact - Musculoskeletal Musculoskeletal: generalized weakness Results - Laboratory Findings CBC and BMP: 12/18/20 05:16 12/18/20 05:16 PT/INR, D-dimer PT 10.3 sec (9.0-12.0) 12/16/20 14:37 INR 1.0 (<1.2) 12/16/20 14:37 Abnormal lab findings: Abnormal Labs 12/16/20 12/16/20 12/16/20 14:37 14:37 14:37 WBC 12.6 H RBC 3.74 L MCV 121.8 H MCH 40.1 H RDW Plt Count Neutrophils # 10.7 H Neutrophils # (Manual) Lymphocytes # (Manual) Macrocytosis Marked A APTT 19.1 L Sodium Chloride Carbon Dioxide 14 L BUN 18 H Glucose 126 H POC Glucose (mg/dL) Plasma Lactic Acid Vadim Calcium Magnesium Iron TIBC Ferritin AST 86 H ALT 52 H Total Protein Albumin Urine Protein Urine Ketones Urine Nitrite Urine Bilirubin Ur Leukocyte Esterase Urine Bacteria Hyaline Casts Urine Mucus Urine Opiates Screen U Benzodiazepines Scrn U Marijuana (THC) Screen 12/16/20 12/16/20 12/16/20 14:37 17:14 17:15 WBC RBC MCV MCH RDW Plt Count Neutrophils # Neutrophils # (Manual) Lymphocytes # (Manual) Macrocytosis APTT Sodium Chloride Carbon Dioxide BUN Glucose POC Glucose (mg/dL) Plasma Lactic Acid Vadim 4.4 H* 3.0 H* Calcium Magnesium Iron TIBC Ferritin AST ALT Total Protein Albumin Urine Protein 1+ H Urine Ketones 4+ H Urine Nitrite Positive H Urine Bilirubin 1+ H Ur Leukocyte Esterase Small H Urine Bacteria Many H Hyaline Casts 7 H Urine Mucus Occasional H Urine Opiates Screen U Benzodiazepines Scrn U Marijuana (THC) Screen 12/16/20 12/18/20 12/18/20 20:44 04:28 05:16 WBC RBC 3.41 L MCV 123.3 H MCH 38.7 H RDW 15.7 H Plt Count 135 L Neutrophils # Neutrophils # (Manual) 8.40 H Lymphocytes # (Manual) 0.17 L Macrocytosis Marked A APTT Sodium Chloride Carbon Dioxide BUN Glucose POC Glucose (mg/dL) 71 L Plasma Lactic Acid Vadim Calcium Magnesium Iron 36 L TIBC 170 L Ferritin 946.6 H AST ALT Total Protein Albumin Urine Protein Urine Ketones Urine Nitrite Urine Bilirubin Ur Leukocyte Esterase Urine Bacteria Hyaline Casts Urine Mucus Urine Opiates Screen U Benzodiazepines Scrn U Marijuana (THC) Screen 12/18/20 12/18/20 12/18/20 05:16 05:16 06:05 WBC RBC MCV MCH RDW Plt Count Neutrophils # Neutrophils # (Manual) Lymphocytes # (Manual) Macrocytosis APTT Sodium 133 L Chloride 108 H Carbon Dioxide 11 L BUN 22 H Glucose POC Glucose (mg/dL) Plasma Lactic Acid Vadim 3.9 H* Calcium 7.8 L Magnesium 1.3 L Iron TIBC Ferritin AST 69 H ALT 38 H Total Protein 4.4 L Albumin 2.1 L Urine Protein Urine Ketones Urine Nitrite Urine Bilirubin Ur Leukocyte Esterase Urine Bacteria Hyaline Casts Urine Mucus Urine Opiates Screen Detected H U Benzodiazepines Scrn Detected H U Marijuana (THC) Screen Detected H Assessment and Plan Assessment: Hypotension Altered mental status Seizure episode Paraparesis and ataxia History of alcoholism Megaloblastic anemia Elevated lactic acid UTI Plan: Proceed with septic workup including urine and blood culture Fluid resuscitation with saline Agree with replacement of thiamine evaluated for B12 deficiency causing ataxia and paraparesis Put a Zhang's catheter and monitor urine output May need EEG but full deferred to neurology expertise and recommendation Agree with transfer to carrier clinic care for higher level of patient management Time with Patient: Greater than 30
[2020-12-18] MEDS: FAMOTIDINE 20 MG TAB PO SCH ×2 (09:30→21:03)
[2020-12-18] MEDS: NICOTINE 14MG/24HR PATCH TRANSDERM SCH (09:30)
[2020-12-18] MEDS: OXYBUTYNIN CHLORIDE 5 MG TAB PO SCH ×3 (09:30→21:03)
[2020-12-18] MEDS: SODIUM CHLORIDE 0.9% 1,000 ML IV SCH ×2 (09:30→09:41)
[2020-12-18] MEDS: methylPREDNISolone SOD SUCCI 125 MG/2 ML VIAL IV SCH (09:41)
[2020-12-18] MEDS: MAGNESIUM SULFATE-D5W PMX 1 GM in DEXTROSE/WATER 1 100ML.BAG IVPB SCH ×3 (09:42→17:20)
[2020-12-18 09:43] LABS: ABG Oxygen Saturation 83.2 % (94-97); ABG PH 7.37 (7.35-7.45); ABG TCO2 11 mmol/L (19-24); Allen Test Performed? Yes
[2020-12-18 09:49] LABS: ABG PCO2 18 mmHg (35-45); ABG PO2 56 mmHg (83-108)
[2020-12-18 09:50] LABS: ABG HCO3 10 mmol/L (21-25)
[2020-12-18] MEDS ORDERED: DEXTROSE 50% SYRINGE 50 ML IVP STA (09:58)
[2020-12-18 09:59] LABS: Glucose,Whole Blood 65 mg/dL (75-99)
[2020-12-18] MEDS ORDERED: DEXTROSE 50% SYRINGE 50 ML IVP ONE (10:00)
[2020-12-18 10:15] LABS: Glucose,Whole Blood 191 mg/dL (75-99)
[2020-12-18] MEDS ORDERED: DEXTROSE 5%-0.45% NACL 1,000 ML IV SCH (10:15)
[2020-12-18] MEDS ORDERED: SODIUM BICARB 8.4% 50 ML SYR (1 MEQ/ML) IV STA (10:19)
[2020-12-18 10:29] LABS: Prolactin 3.2 ng/mL (2.8-29.2)
[2020-12-18] MEDS: ENOXAPARIN 40 MG/0.4 ML SYRINGE SQ SCH (10:29)
[2020-12-18] MEDS: THIAMINE 100 MG/ML 2 ML VIAL IVP SCH (10:40)
[2020-12-18] MEDS: DEXTROSE 5% IN WATER 1,000 ML with SODIUM BICARB (1 MEQ/ML) 150 ML IV SCH ×2 (10:41→21:32)
[2020-12-18 10:51] LABS: Appearance,Urine Clear (Clear); Bacteria,Urine Rare /hpf; Bilirubin,Urine 1+ (Negative); Blood,Urine Negative (Negative); Color,Urine Dark Brown; Glucose,Urine (UA) Negative (Negative); Ketones,Urine 1+ (Negative); Leukocyte Esterase,Urine Small (Negative); Mucus,Urine Rare /hpf; Nitrite,Urine Negative (Negative); PH, Urine 5.5 (5.0-8.0); Protein,Urine 1+ (Negative); Specific Gravity,Urine 1.027 (1.001-1.035); Squamous Epithelial Cell,Urine 1 /hpf (0-4); WBC,Urine 10 /hpf (0-5)
--- NOTE | 2020-12-18 12:35 | P.PN ---
Progress Note - Text Progress Note Date: 12/18/20 Patient was discussed in detail with nursing. Patient did have an event earlier this morning in which she was found to be unresponsive looking at an off direction with her arm shaking. Patient was transferred to [facility]. She is undergoing further treatment and evaluation. Stat labs have been ordered. Documentation states in light of the patient's poor nutritional status, abnormal LFTs, tachycardia, and tremor, differentials include substance abuse, ETOH withdrawal, and primary seizure disorder. She continues to be seen and examined by medicine and neurology. She has been seen by pulmonology. Yesterday patient did have MRI imaging of her cervical and lumbar spine performed. These images were reviewed by myself and Dr. Sanford Sanchez. Imaging did not show evidence of significant cervical or lumbar stenosis, no evidence of cord signal change, no evidence of spinal compression. Her previous cervical and lumbar fusions appear stable. From an orthopedic standpoint, it does not appear her symptoms are stemming from her cervical spine or lumbar spine. We are not currently planning for any further treatment or evaluation in regards to her cervical or lumbar spine. Her symptoms do not appear to be spinal in origin. We are not planning for any surgical intervention. Given her recent event and other significant laboratory findings, patient will continue with further treatment evaluation by pulmonology, neurology, and medicine. Patient may follow-up with Mando Rodriguez PA-C or Dr. Sanford Sanchez at [facility] on an as- needed basis in the outpatient setting following discharge. Patient was also recently diagnosed UTI. She is currently undergoing evaluation for sepsis.
[2020-12-18] MEDS ORDERED: IV FLUID CONTINUATION 1,000 ML IV ONE ×2 (14:40)
--- NOTE | 2020-12-18 15:24 | P.PCN ---
Date of Procedure: 12/18/20 Description of Procedure: Preoperative diagnosis: altered mental status Post operative diagnoses: altered mental status Anesthesia local infiltration with lidocaine 1% 2 mL Condition: stable Complication: none. Timeout 1452 Start 1455 end 151 Description of the procedure procedure risk and benefits discussed with the patient's , consent signed. Patient was taken to the procedure area placed in sitting position Local infiltration of the skin and subcutaneous tissue with lidocaine 1%. A 20-gauge Quincke-type needle advanced slowly at L4- 5 interlaminar space, CSF was seen, patient then laid in left lateral position..opening pressure was measured at 12 cm of water. CSF was collected. A total of 8 ML of clear cerebrospinal fluid collected in 4 tubes, then closing pressure was measured at 9 cm of water. Then, the needle was removed and a Band-Aid applied and patient tolerated the procedure well without any complications.
[2020-12-18 16:31] LABS: Glucose,Whole Blood 213 mg/dL (75-99)
[2020-12-18 17:55] LABS: Glucose,CSF 95 mg/dL (40-70); Total Protein,CSF 62 mg/dL (12-60)
[2020-12-18 18:18] LABS: Appearance,CSF Blood Tinged; CSF Tube Number 4
[2020-12-18 18:19] LABS: Nucleated Cells, CSF 2 u/L (0-5); Red Blood Cell, CSF Crenated 0 %; Red Blood Cell, CSF Fresh 100 %; Red Blood Cell,CSF 1230 u/L (0-10)
--- NOTE | 2020-12-18 20:49 | P.PN ---
Progress Note - Text Progress Note Date: 12/18/20 Chief Complaint: Difficulty walking History of presenting complaint: This is a 55-year-old patient follows with . Patient is accompanied by her . Patient's had back pain problem for years. She had a cervical spine surgery about 3 years ago and number spine surgery about [address] Sanchez. At her baseline patient does walk slowly without any support. About 10 days ago patient started complaining of pain in the middle of the back. Also noticed progressive weakness of the legs. Her hobbies ago she started having increasing neck pain. also notices same time having some slurred speech. She's always had some tremor which is not exacerbated. Denies any change in bowel or bladder pattern. No trouble swallowing. Patient admitted with neurological combination of symptoms unclear. Lower extremity weakness, upper extremity weakness, some changes speech. Some tremors. Cervical spine MRI, lumbar spine MRI, brain MRI did not show anything acute. Patient is put on IV steroids by Dr. Gee from orthopedics. Today: On around 4:00 this morning and 18 was called out. Patient was found to be jerking and looking towards the ceiling on one side. Vital signs blood table. In the morning I saw the patient and patient was rather lethargic. Not following commands. Patient's found to be slightly hypoxic. I discussed the case with Dr. Mendez from neurology. We felt this could be GB syndrome. And patient was therefore moved to the ICU. I called Dr. Salazar from critical care about the same. I also spoke to the nurse tried to do some CO2 monitoring. As patient, will not be able to doNIF. Lumbar puncture was done. Review of systems: Cannot be done as patient is lethargic Active Medications Acetaminophen (Acetaminophen Tab 325 Mg Tab) 650 mg PO Q6HR PRN PRN Reason: Mild Pain or Fever > 100.5 Alprazolam (Alprazolam 0.5 Mg Tab) 0.5 mg PO TID PRN PRN Reason: Anxiety Last Admin: 12/17/20 20:30 Dose: 0.5 mg Documented by: Cyanocobalamin (Cyanocobalamin 1,000 Mcg/Ml 1 Ml Vial) 1,000 mcg IM DAILY@2100 GAURI Duloxetine HCl (Duloxetine Hcl 60 Mg Javed.) 60 mg PO [facility] Last Admin: 12/17/20 20:31 Dose: 60 mg Documented by: Enoxaparin Sodium (Enoxaparin 40 Mg/0.4 Ml Syringe) 40 mg SQ DAILY [facility] Last Admin: 12/18/20 10:29 Dose: Not Given Documented by: Famotidine (Famotidine 20 Mg Tab) 20 mg PO BID [facility] Last Admin: 12/18/20 09:30 Dose: Not Given Documented by: Folic Acid (Folic Acid 1 Mg Tab) 1 mg PO DAILY [facility] Sodium Chloride (Saline 0.9%) 1,000 mls @ 75 mls/hr IV .[id number] [facility] Last Admin: 12/18/20 09:41 Dose: 75 mls/hr Documented by: Ceftriaxone Sodium 1 gm/ (Sodium Chloride) 50 mls @ 100 mls/hr IVPB Q24H [facility] Last Admin: 12/17/20 20:26 Dose: 100 mls/hr Documented by: Sodium Bicarbonate 150 ml/ (Dextrose/Water) 1,150 mls @ 125 mls/hr IV .[id number] [facility] Last Admin: 12/18/20 10:41 Dose: 125 mls/hr Documented by: Ibuprofen (Ibuprofen 400 Mg Tab) 400 mg PO Q6HR PRN PRN Reason: Mild Pain or Fever > 100.5 Ketorolac Tromethamine (Ketorolac 15 Mg/Ml 1 Ml Vial) 15 mg IVP Q6HR PRN PRN Reason: Moderate Pain Stop: 12/19/20 16:08 Last Admin: 12/17/20 20:30 Dose: 15 mg Documented by: Lorazepam (Lorazepam 2 Mg/Ml Inj) 1 mg IV Q2HR PRN PRN Reason: CIWA 8 or 9 Lorazepam (Lorazepam 2 Mg/Ml Inj) 1 mg IV Q1HR PRN PRN Reason: CIWA 10 to 15 Lorazepam (Lorazepam 2 Mg/Ml Inj) 2 mg IV Q10M PRN PRN Reason: CIWA 16 or higher Stop: 12/20/20 05:02 Methylprednisolone Sodium Succinate (Methylprednisolone Sod Succi 40 Mg/Ml 1 Ml Vial) 40 mg IV Q12H [facility] Morphine Sulfate (Morphine Sulfate 4 Mg/Ml Syringe) 4 mg IV Q4HR PRN PRN Reason: Severe Pain Last Admin: 12/17/20 04:33 Dose: 4 mg Documented by: Naloxone HCl (Naloxone 0.4 Mg/Ml 1 Ml Vial) 0.2 mg IV Q2M PRN PRN Reason: Opioid Reversal Nicotine (Nicotine 14mg/24hr Patch) 1 patch TRANSDERM DAILY [facility] Last Admin: 12/18/20 09:30 Dose: Not Given Documented by: Ondansetron HCl (Ondansetron 4 Mg/2 Ml Vial) 4 mg IVP Q8HR PRN PRN Reason: Nausea And Vomiting Last Admin: 12/16/20 18:30 Dose: 4 mg Documented by: Oxybutynin Chloride (Oxybutynin Chloride 5 Mg Tab) 5 mg PO TID [facility] Last Admin: 12/18/20 17:17 Dose: Not Given Documented by: Thiamine HCl (Thiamine 100 Mg/Ml 2 Ml Vial) 100 mg IVP DAILY [facility] Last Admin: 12/18/20 10:40 Dose: 100 mg Documented by: Past medical history to include: Cervical spine or lumbar surgery. Chronic kidney dysfunction Social history: Smokes half a pack a day for many years. Family history: Reviewed, noncontributory to presentation Physical examination: VITAL SIGNS: 97.9, 106, 20, 129/85, 99% on 2 L GENERAL: laying in bed, lethargic EYES: Pupils equal. Conjunctiva normal. HEENT: External appearance of nose and ears normal, oral cavity a bit dry NECK: JVD not raised; masses not palpable. HEART: First and second heart sounds are normal; no edema. LUNGS:[ Respiratory rate normal; decreased breath sounds. ABDOMEN: Soft, nontender, liver spleen not palpable, no masses palpable. PSYCH: Unable to assess. NEUROLOGICAL: [Cranial nerves grossly intact; no facial asymmetry, hyporeflexia. INVESTIGATIONS, reviewed in the clinical context: Cervical spine MRI: Anterior fusion surgery. No spinal stenosis. Nothing acute reported. Brain MRI: Mild atrophy. Lumbar spine MRI: Posterior fusion surgery. X-ray lumbar spine: Postsurgical changes. X-ray cervical spine: Anterior fusion plate at C5 C7. Moderate disc narrowing at C3-C4 and C4-C5. Prominent anterior spur at the inferior C4. Alignment stable. 2-D echocardiogram: EF greater than 55%. WBC 12.6 hemoglobin 15 platelets 193 potassium 3.9 creatinine 0.61 lactic acid 4.4 AST 86 ALT 52 troponin I less than 0.012 UA positive for nitrite, esterase, bacteria Coronavirus [PCR]-not detected EKG tracing personally reviewed by me shows sinus rhythm nonspecific ST segment changes Computed tomography scan of the brain C-spine without contrast: Anterior fusion plate and artificial disc material C5-C7 levels. Moderate disc space narrowing with prominent spurring C4-C5 level. Moderate impression minutes changes. No acute fracture or dislocation reported. Assessment and plan: -This is a patient is had cervical spine surgery about 3 years ago and lumbar spine surgery about 8 years ago. At her baseline patient walks slowly. Patient presents now with 10 days of mid thoracic pain and 2-1/2 days of increasing cervical spine pain. Patient is gait has become progressively weaker and barely able to walk now. Patient has decreased sensation. Also her neighborhood worker is weak. Interestingly patient also got some slurring of the speech. Computed tomography scan is unremarkable. Patient cervical spine MRI, brain MRI, lumbar spine MRI does not reveal anything acute. Patient had a seizure-like activity today. Will DC Cymbalta. Differential includes giillain barre syndrome. Lumbar puncture ordered. Rule out seizures. -Acute on chronic gait dysfunction.-Slow to respond Fall precautions -New onset dysarthria, Brain MRI negative. -Chronic nicotine dependence patient cigarette smoker Nicotine patch -Emphysema in a current smoker, asymptomatic Follow clinically -Macrocytosis Will check B12 and iron studies -Acute UTI with cystitis On IV ceftriaxone -Acute hypoxic respiratory failure, from COPD. Oxygen supplementation. -Type II lactic acidosis IV fluids -Hypoglycemia from decreased oral intake D5 0.45 IV fluids -Acute metabolic acidosis Getting IV bicarbonate. Consult nephrology. Follow labs Patient moved to the ICU. Lumbar puncture. Follow-up with neurology. Stat EEG ordered this afternoon. DC Cymbalta
--- NOTE | 2020-12-18 20:56 | P.PN ---
Subjective Progress Note Date: 12/18/20 Patient was seen for a follow-up. Patient's was also present today. He mentions that for last couple of weeks, patient has not been eating, no desire to eat. No history of alcoholism reported by patient's or the patient herself. Patient today is more encephalopathic, very generalized weak, not able to answer hardly any questions. Patient was able to tell name of her but on repeated attempts, with very low voice. Patient denies headache. Not able to answer any other questions regarding review of systems. Yesterday rapid response team was activated at 4:39 PM. Patient was found unresponsive while looking off in a direction with the arms shaking. Her vitals were blood pressure 137/85, pulse rate 118, saturation 100% on 2 L nasal cannula. Patient was reporting feeling tired but otherwise denied active complaints at that time. Seizure was suspected. Alcohol withdrawal was suspected. Patient was started on thiamine 100 g IV push, with CIWA protocol. 1 L of normal saline bolus was given. Aspiration precautions. EEG was ordered this morning. Patient does have history of pancreatitis 3 years ago. She did not follow up with her physicians because of the pandemic. Objective - Vital Signs Vital signs: Vital Signs Temp 98.1 F 12/18/20 15:20 Pulse 116 H 12/18/20 16:00 Resp 18 12/18/20 16:00 BP 144/83 12/18/20 16:00 Pulse Ox 100 12/18/20 16:00 Intake & Output 12/17/20 12/18/20 12/18/20 18:59 06:59 18:59 Intake Total 890 100 Balance 890 100 Intake: IV 100 Oral 890 Other: Voiding Method Bedpan Bedpan Indwelling Catheter Diaper # Voids 3 - Exam On examination patient is a middle aged female, appears older than her stated age. She appears generalized weak. Patient is encephalopathic. Patient not able to speak because of generalized weakness. Patient was able to tell her name of her . She does know her name and keeps on repeating her name. Pupils are round and reactive to light. Extraocular muscles appear slight restriction on the end gaze, not able to hold the gaze sideways. Visual ely could not be tested today. Her face is symmetric. Patient appears generalized weak, not able to participate in the examination. Patient's admissions counselor is no more th an 3+ to 4-. Patient not able to lift her arms up off the bed. Coordination cannot be checked. Patient is completely areflexic. Not able to cooperate with the examination regarding sensory examination. Patient had a very weak cough. - Labs CBC & Chem 7: 12/18/20 05:16 12/18/20 05:16 Labs: Abnormal Lab Results - Last 24 Hours (Table) 12/16/20 12/18/20 12/18/20 Range/Units 20:44 04:28 05:16 RBC 3.41 L (3.80-5.40) m/uL MCV 123.3 H (80.0-100.0) fL MCH 38.7 H (25.0-35.0) pg RDW 15.7 H (11.5-15.5) % Plt Count 135 L (150-450) k/uL Neutrophils # (Manual) 8.40 H (1.3-7.7) k/uL Lymphocytes # (Manual) 0.17 L (1.0-4.8) k/uL Macrocytosis Marked A ABG pCO2 (35-45) mmHg ABG pO2 (83-108) mmHg ABG HCO3 (21-25) mmol/L ABG Total CO2 (19-24) mmol/L ABG O2 Saturation (94-97) % Sodium (137-145) mmol/L Chloride (98-107) mmol/L Carbon Dioxide (22-30) mmol/L BUN (7-17) mg/dL POC Glucose (mg/dL) 71 L (75-99) mg/dL Plasma Lactic Acid Vadim (0.7-2.0) mmol/L Calcium (8.4-10.2) mg/dL Magnesium (1.6-2.3) mg/dL Iron 36 L (50-170) ug/dL TIBC 170 L (228-460) ug/dL Ferritin 946.6 H (10.0-291.0) ng/mL AST (14-36) U/L ALT (4-34) U/L CK-MB (CK-2) (0.0-2.4) ng/mL Total Protein (6.3-8.2) g/dL Albumin (3.5-5.0) g/dL Urine Protein (Negative) Urine Ketones (Negative) Urine Bilirubin (Negative) Ur Leukocyte Esterase (Negative) Urine WBC (0-5) /hpf Urine Bacteria (None) /hpf Urine Mucus (None) /hpf Urine Opiates Screen (NotDetected) U Benzodiazepines Scrn (NotDetected) U Marijuana (THC) Screen (NotDetected) 12/18/20 12/18/20 12/18/20 Range/Units 05:16 05:16 06:05 RBC (3.80-5.40) m/uL MCV (80.0-100.0) fL MCH (25.0-35.0) pg RDW (11.5-15.5) % Plt Count (150-450) k/uL Neutrophils # (Manual) (1.3-7.7) k/uL Lymphocytes # (Manual) (1.0-4.8) k/uL Macrocytosis ABG pCO2 (35-45) mmHg ABG pO2 (83-108) mmHg ABG HCO3 (21-25) mmol/L ABG Total CO2 (19-24) mmol/L ABG O2 Saturation (94-97) % Sodium 133 L (137-145) mmol/L Chloride 108 H (98-107) mmol/L Carbon Dioxide 11 L (22-30) mmol/L BUN 22 H (7-17) mg/dL POC Glucose (mg/dL) (75-99) mg/dL Plasma Lactic Acid Vadim 3.9 H* (0.7-2.0) mmol/L Calcium 7.8 L (8.4-10.2) mg/dL Magnesium 1.3 L (1.6-2.3) mg/dL Iron (50-170) ug/dL TIBC (228-460) ug/dL Ferritin (10.0-291.0) ng/mL AST 69 H (14-36) U/L ALT 38 H (4-34) U/L CK-MB (CK-2) (0.0-2.4) ng/mL Total Protein 4.4 L (6.3-8.2) g/dL Albumin 2.1 L (3.5-5.0) g/dL Urine Protein (Negative) Urine Ketones (Negative) Urine Bilirubin (Negative) Ur Leukocyte Esterase (Negative) Urine WBC (0-5) /hpf Urine Bacteria (None) /hpf Urine Mucus (None) /hpf Urine Opiates Screen Detected H (NotDetected) U Benzodiazepines Scrn Detected H (NotDetected) U Marijuana (THC) Screen Detected H (NotDetected) 12/18/20 12/18/20 12/18/20 Range/Units 09:16 09:16 09:40 RBC (3.80-5.40) m/uL MCV (80.0-100.0) fL MCH (25.0-35.0) pg RDW (11.5-15.5) % Plt Count (150-450) k/uL Neutrophils # (Manual) (1.3-7.7) k/uL Lymphocytes # (Manual) (1.0-4.8) k/uL Macrocytosis ABG pCO2 18 L* (35-45) mmHg ABG pO2 56 L* (83-108) mmHg ABG HCO3 10 L* (21-25) mmol/L ABG Total CO2 11 L (19-24) mmol/L ABG O2 Saturation 83.2 L (94-97) % Sodium (137-145) mmol/L Chloride (98-107) mmol/L Carbon Dioxide (22-30) mmol/L BUN (7-17) mg/dL POC Glucose (mg/dL) (75-99) mg/dL Plasma Lactic Acid Vadim 4.8 H* (0.7-2.0) mmol/L Calcium (8.4-10.2) mg/dL Magnesium (1.6-2.3) mg/dL Iron (50-170) ug/dL TIBC (228-460) ug/dL Ferritin (10.0-291.0) ng/mL AST (14-36) U/L ALT (4-34) U/L CK-MB (CK-2) 2.6 H (0.0-2.4) ng/mL Total Protein (6.3-8.2) g/dL Albumin (3.5-5.0) g/dL Urine Protein (Negative) Urine Ketones (Negative) Urine Bilirubin (Negative) Ur Leukocyte Esterase (Negative) Urine WBC (0-5) /hpf Urine Bacteria (None) /hpf Urine Mucus (None) /hpf Urine Opiates Screen (NotDetected) U Benzodiazepines Scrn (NotDetected) U Marijuana (THC) Screen (NotDetected) 12/18/20 12/18/20 12/18/20 Range/Units 09:58 10:06 10:14 RBC (3.80-5.40) m/uL MCV (80.0-100.0) fL MCH (25.0-35.0) pg RDW (11.5-15.5) % Plt Count (150-450) k/uL Neutrophils # (Manual) (1.3-7.7) k/uL Lymphocytes # (Manual) (1.0-4.8) k/uL Macrocytosis ABG pCO2 (35-45) mmHg ABG pO2 (83-108) mmHg ABG HCO3 (21-25) mmol/L ABG Total CO2 (19-24) mmol/L ABG O2 Saturation (94-97) % Sodium (137-145) mmol/L Chloride (98-107) mmol/L Carbon Dioxide (22-30) mmol/L BUN (7-17) mg/dL POC Glucose (mg/dL) 65 L 191 H (75-99) mg/dL Plasma Lactic Acid Vadim (0.7-2.0) mmol/L Calcium (8.4-10.2) mg/dL Magnesium (1.6-2.3) mg/dL Iron (50-170) ug/dL TIBC (228-460) ug/dL Ferritin (10.0-291.0) ng/mL AST (14-36) U/L ALT (4-34) U/L CK-MB (CK-2) (0.0-2.4) ng/mL Total Protein (6.3-8.2) g/dL Albumin (3.5-5.0) g/dL Urine Protein 1+ H (Negative) Urine Ketones 1+ H (Negative) Urine Bilirubin 1+ H (Negative) Ur Leukocyte Esterase Small H (Negative) Urine WBC 10 H (0-5) /hpf Urine Bacteria Rare H (None) /hpf Urine Mucus Rare H (None) /hpf Urine Opiates Screen (NotDetected) U Benzodiazepines Scrn (NotDetected) U Marijuana (THC) Screen (NotDetected) 12/18/20 12/18/20 Range/Units 12:17 16:29 RBC (3.80-5.40) m/uL MCV (80.0-100.0) fL MCH (25.0-35.0) pg RDW (11.5-15.5) % Plt Count (150-450) k/uL Neutrophils # (Manual) (1.3-7.7) k/uL Lymphocytes # (Manual) (1.0-4.8) k/uL Macrocytosis ABG pCO2 (35-45) mmHg ABG pO2 (83-108) mmHg ABG HCO3 (21-25) mmol/L ABG Total CO2 (19-24) mmol/L ABG O2 Saturation (94-97) % Sodium (137-145) mmol/L Chloride (98-107) mmol/L Carbon Dioxide (22-30) mmol/L BUN (7-17) mg/dL POC Glucose (mg/dL) 213 H (75-99) mg/dL Plasma Lactic Acid Vadim 4.2 H* (0.7-2.0) mmol/L Calcium (8.4-10.2) mg/dL Magnesium (1.6-2.3) mg/dL Iron (50-170) ug/dL TIBC (228-460) ug/dL Ferritin (10.0-291.0) ng/mL AST (14-36) U/L ALT (4-34) U/L CK-MB (CK-2) (0.0-2.4) ng/mL Total Protein (6.3-8.2) g/dL Albumin (3.5-5.0) g/dL Urine Protein (Negative) Urine Ketones (Negative) Urine Bilirubin (Negative) Ur Leukocyte Esterase (Negative) Urine WBC (0-5) /hpf Urine Bacteria (None) /hpf Urine Mucus (None) /hpf Urine Opiates Screen (NotDetected) U Benzodiazepines Scrn (NotDetected) U Marijuana (THC) Screen (NotDetected) Assessment and Plan Assessment: * 55-year-old female with subacute (1-1/2 week) history of progressive bilateral upper and lower extremity weakness/ataxia, left side worse than right, and some dysarthria. Patient also has severe sensory deficits in the legs all the way up to L2 dermatome. Patient is areflexic. Rule out Guillain-English syndrome. No recent history of upper respiratory or GI infection. Patient has mild weakness of extraocular muscles as as well. Differential also includes Wernicke's encephalopathy. Patient's declines any history of alcoholism. She did have decreased nutritional intake only for last few weeks. Patient's MRI of the brain and the spine has ruled out CVA, demyelinating disease like MS and cord compression or transverse myelitis. * Severe macrocytosis. Folate deficiency. B12 level is normal. MMA pending. * Acute UTI * Elevated liver enzymes, history of pancreatitis. * History of multiple back surgeries. * New onset seizure type spell, unclear etiology. No reported history of alcoholism. * Marijuana use Plan: * MRI of the brain revealed mild atrophy. There are a few scattered small white matter high signal foci of uncertain significance. This could relate to microvascular ischemia. No evidence of cortical infarct or demyelinating disease. * MRI of cervical spine showed anterior fusion surgery. No spinal stenosis. No significant complicating process. * MRI of lumbar spine showed posterior fusion surgery. Small extradural seroma or chronic hematoma at the surgery site posteriorly.. * B12 480, folate 5.0, TSH 1.0 which is normal, MMA pending, B6 pending. KUMAR negative, CK 87, A1c 4.8, CARMELA 23 normal, Lyme pending, Sjogren's negative and RPR negative. B1 pending. Serum IgA normal 321. Ammonia normal. * Patient will be started on folic acid 1 mg daily for folic acid deficiency. We will empirically start vitamin B12 1000 g IM daily, pending MMA level. B1 level pending. Continue vitamin B1. * Telemetric monitoring showing sinus rhythm. Patient underwent lumbar puncture, which was slightly traumatic. WBC 2 which is normal. RBC 1230, glucose is 95, CSF proteins borderline at 62 (12-60). Patient is progressively getting weaker in the arms and legs. Patient is areflexic. Patient had severe ataxia noted yesterday, today unable to assess because of severe weakness. Patient will be transferred to ICU for close monitoring. Watch for respiratory status. Monitor NIF and vital capacity. Patient underwent EEG, which showed moderate to severe background slowing consistent with generalized cerebral dysfunction as can be seen with toxic medical encephalopathy. No epileptiform activity was seen. No indication for antiepileptic medication at this time. Although Guillain-English syndrome is a possibility, but would not explain her encephalopathy. Later may be related to some nutritional deficiency. We will empirically start IVIG for possible Guillain-English syndrome. Recommend EMG and nerve conduction studies of upper and lower extremities, when possible. Dr. Chen covering neurology service over the weekend.
[2020-12-18] MEDS: FOLIC ACID 1 MG TAB PO SCH (21:03)
[2020-12-18] MEDS: CYANOCOBALAMIN 1,000 MCG/ML 1 ML VIAL IM SCH (21:13)
[2020-12-18] MEDS: methylPREDNISolone SOD SUCCI 40 MG/ML 1 ML VIAL IV SCH (21:13)
--- NOTE | 2020-12-18 22:09 | EEG ---
ELECTROENCEPHALOGRAM REPORT DATE OF SERVICE: 12/18/2020 PREAMBLE: This is a 55-year-old female with altered mental status, and the patient has possible seizure type spell. This study is performed to evaluate for encephalopathy rule out any epileptiform activity. EEG FINDINGS: This is a 21 channel routine EEG recording in a patient utilizing 10/20 international system with referential and bipolar montages. Background consists of a well-developed, poorly regulated, mixed frequencies of 6 hertz theta intermixed with some diffuse low- voltage delta activity. Some intermittent episodes of the generalized suppressed activity was also seen intermittently. No focal or generalized epileptiform activity was seen. Different stages of sleep were not seen. Photic driving response was not seen. EKG channel showed tachycardia. IMPRESSION: This is an abnormal EEG due to background slowing of moderate to severe degree. This is suggestive of generalized cerebral dysfunction as can be seen with toxic metabolic encephalopathy or due to diffuse structural brain abnormality. No epileptiform activity was seen. MMODL / IJN: [id number] /
[2020-12-18] MEDS ORDERED: IMMUNE GLOBULIN (GAMMAGARD) 20 GM in EMPTY BAG 1 BAG IV ONE (22:30)
[2020-12-18] MEDS ORDERED: IMMUNE GLOBULIN (GAMMAGARD) 5 GM in EMPTY BAG 1 BAG IV ONE (22:30)
[2020-12-18] MEDS ORDERED: IMMUNE GLOBULIN (GAMMAGARD) 20 GM in EMPTY BAG 1 BAG IV NR (23:00)
[2020-12-19 04:08] LABS: ALT 37 U/L (4-34); AST 100 U/L (14-36); African American GFR (CKD) >90 (>60 ml/min/1.73 sqM); Albumin 1.9 g/dL (3.5-5.0); Alkaline Phosphatase 54 U/L (38-126); Anion Gap 7 mmol/L; Blood Urea Nitrogen 23 mg/dL (7-17); Calcium 7.2 mg/dL (8.4-10.2); Carbon Dioxide 24 mmol/L (22-30); Chloride 103 mmol/L (98-107); Glucose 156 mg/dL (74-99); Non-African American GFR(CKD) >90 (>60 ml/min/1.73 sqM); Potassium 3.1 mmol/L (3.5-5.1); Sodium 134 mmol/L (137-145); Total Bilirubin 0.7 mg/dL (0.2-1.3)
[2020-12-19] MEDS ORDERED: Potassium Replacement Protocol 1 EACH MISC MISCELLANE PRN (04:14)
[2020-12-19 04:34] LABS: HCT 40.2 % (34.0-46.0); HGB 12.9 gm/dL (11.4-16.0); MCH 38.3 pg (25.0-35.0); MCV 119.8 fL (80.0-100.0); Macrocytosis Marked; Mean Platelet Volume 11.3; Platelet Count 104 k/uL (150-450); RBC 3.36 m/uL (3.80-5.40); RDW 15.6 % (11.5-15.5); WBC 6.2 k/uL (3.8-10.6)
[2020-12-19] MEDS: POTASSIUM CHLORIDE 10 MEQ in WATER FOR INJECTION 1 100ML.BAG IVPB SCH ×4 (04:59→15:16)
[2020-12-19] MEDS ORDERED: FUROSEMIDE 10 MG/ML 4 ML VIAL IV STA (05:18)
[2020-12-19] MEDS: DEXTROSE 5% IN WATER 1,000 ML with SODIUM BICARB (1 MEQ/ML) 150 ML IV SCH (05:35)
[2020-12-19 05:58] LABS: Anisocytosis (M) Present; Band Neutrophils % 9 %; Lymphocytes # (M) 0.87 k/uL (1.0-4.8); Monocytes # (M) 0.37 k/uL (0-1.0); Neutrophils % (M) 71 %; Nucleated Red Blood Cells 0 /100 WBC (0-0); Polychromasia Present; Target Cells Present; Total Cells Counted 100
[2020-12-19] MEDS ORDERED: ETOMIDATE 2 MG/ML 10 ML VIAL ONE (06:35)
[2020-12-19] MEDS ORDERED: SUCCINYLCHOLINE CHLORIDE VIAL 200 MG/10 ML VIAL IV ONE (06:35)
[2020-12-19] MEDS ORDERED: propofoL 100 ML IV ONE (06:36)
--- NOTE | 2020-12-19 06:58 | XR ---
EXAM: XR Chest, 1 View CLINICAL HISTORY: ITS.REASON XR Reason: resp distress TECHNIQUE: Frontal view of the chest. COMPARISON: No relevant prior studies available. FINDINGS/IMPRESSION: Extensive bilateral airspace consolidations, consistent with multifocal infiltrate. Follow-up CXR recommended. No pleural effusion or pneumothorax. The heart size is enlarged. Calcified aorta. Underlying emphysema. ACDF.
[2020-12-19] MEDS ORDERED: methylPREDNISolone SOD SUCCI 40 MG/ML 1 ML VIAL IV STA (07:09)
[2020-12-19] MEDS ORDERED: NOREPINEPHRINE 4 MG in SODIUM CHLORIDE 0.9% 250 ML IV SCH (07:15)
[2020-12-19] MEDS ORDERED: NOREPINEPHRIN 4 MG-0.9% NS PMX 4 MG/250 ML ML IV ONE (07:54)
--- NOTE | 2020-12-19 08:15 | XR ---
EXAMINATION TYPE: XR chest 1V portable DATE OF EXAM: 12/19/2020 COMPARISON: 12/19/2020 INDICATION: Tube placement TECHNIQUE: Single frontal view of the chest is obtained. FINDINGS: The heart size is normal. The pulmonary vasculature is indistinct. Patchy consolidations at the left lung and right lower lung ely. Mild infiltrates in the remaining aerated lungs. Endotracheal tube tip is 4.3 cm above the joann. Nasogastric tube transverses the thorax. IMPRESSION: 1. Worsening bilateral patchy infiltrates. 2. Lines and catheters discussed above.
--- NOTE | 2020-12-19 08:47 | P.NPCON ---
History of Present Illness - Reason for Consult metabolic acidosis - History of Present Illness Reason for presentation: Acidosis History of present illness: Patient is a 55-year-old female seen in renal consultation for acid-base disturbance. Patient presented to the hospital with generalized weakness and difficulty with regulation. She also had a fall prior to admission. She is being followed by neurology. 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 She also had a lumbar puncture done. Last night the patient became more unresponsive with concern for seizure. She was transferred to the intensive care unit. She is currently intubated. Patient was quite acidotic with a bicarbonate level of 11 yesterday. She is maintained on bicarb drip. Bicarb level this morning was 24. No blood gas today. Yesterday's blood gas was suggestive of metabolic acidosis and respiratory alkalosis. Nonoliguric. GFR at baseline. Chest x-ray shows bilateral patchy infiltrates. Echocardiogram revealed preserved ejection fraction. Vital signs are stable. HEENT: Intubated. LUNGS: Breath sounds decreased. HEART: Tachycardic. ABDOMEN: Soft, no distention. EXTREMITITES: No edema. Past Medical History Past Medical History: Musculoskeletal Disorder Additional Past Medical History / Comment(s): Lumbar surgery over [address] Sanchez for which she feels that she was doing well. Cervical spine surgery possibly 3 years ago at outside institution for which she feels she had minimal benefit. History of Any Multi-Drug Resistant Organisms: None Reported Past Surgical History: Back Surgery, Section Additional Past Surgical History / Comment(s): Not able to take any INFO Past Anesthesia/Blood Transfusion Reactions: No Reported Reaction Past Psychological History: Depression Smoking Status: Unknown if ever smoked Past Alcohol Use History: Unable to Obtain Past Drug Use History: Unable to Obtain Medications and Allergies Home Medications Medication Instructions Recorded Confirmed Type DULoxetine HCL [Cymbalta] 60 mg PO HS 12/16/20 12/16/20 History Allergies Allergy/AdvReac Type Severity Reaction Status Date / Time bupropion [From Zyban] Allergy Rash/Hives Verified 12/16/20 15:18 Physical Exam Vitals: Vital Signs Temp Pulse Pulse Pulse Resp BP BP 12/19/20 07:00 129 H 16 115/81 12/19/20 06:00 134 H 36 H 116/81 12/19/20 05:00 118 H 18 117/85 12/19/20 04:00 97.9 F 115 H 117/85 12/19/20 03:00 113 H 113/82 12/19/20 02:00 107 H 26 H 116/83 12/19/20 01:00 113 H 104/83 12/19/20 00:37 12/19/20 00:32 113 H 11 L 115/71 12/19/20 00:00 98.0 F 114 H 24 115/71 12/18/20 23:00 115 H 24 129/97 12/18/20 22:00 105 H 20 120/69 12/18/20 21:00 105 H 18 118/84 12/18/20 20:00 97.8 F 90 23 141/126 12/18/20 19:28 12/18/20 19:00 102 H 19 132/83 12/18/20 18:00 106 H 19 129/85 12/18/20 17:30 106 H 20 129/85 12/18/20 17:00 110 H 20 138/89 12/18/20 16:32 97.9 F 110 H 21 138/89 12/18/20 16:00 116 H 18 144/83 12/18/20 15:35 117 H 2 L 143/75 12/18/20 15:20 98.1 F 112 H 20 143/85 12/18/20 14:34 98.0 F 116 H 22 139/86 12/18/20 14:00 133 H 32 H 12/18/20 12:23 97.8 F 133 H 32 H 12/18/20 10:47 130 H 34 H 12/18/20 10:28 98.7 F 135 H 34 H BP Pulse Ox 12/19/20 07:00 92 L 12/19/20 06:00 12/19/20 05:00 88 L 12/19/20 04:00 92 L 12/19/20 03:00 94 L 12/19/20 02:00 98 12/19/20 01:00 97 12/19/20 00:37 98 12/19/20 00:32 99 12/19/20 00:00 99 12/18/20 23:00 100 12/18/20 22:00 96 12/18/20 21:00 99 12/18/20 20:00 99 12/18/20 19:28 100 12/18/20 19:00 99 12/18/20 18:00 99 12/18/20 17:30 99 12/18/20 17:00 99 12/18/20 16:32 100 12/18/20 16:00 100 12/18/20 15:35 100 12/18/20 15:20 100 12/18/20 14:34 100 12/18/20 14:00 12/18/20 12:23 139/81 96 12/18/20 10:47 12/18/20 10:28 151/99 96 Intake and Output 12/18/20 12/19/20 12/19/20 22:59 06:59 14:59 Intake Total 850 956.373 150 Output Total 305 200 100 Balance 545 756.373 50 Intake: IV 350 950 150 Dextrose 5% in Water 1, 250 950 150 000 ml @ 125 mls/hr IV . Q9H12M GAURI with Sodium Bicarb (1 Meq/ml) 150 ml Rx#:[id number] Intake, IV Titration 500 6.373 Amount Dextrose 5% in Water 1, 500 000 ml @ 125 mls/hr IV . Q9H12M GAURI with Sodium Bicarb (1 Meq/ml) 150 ml Rx#:[id number] Immune Globulin ( 6.373 Gammagard) 20 gm In Empty Bag 1 bag @ Titrate IV . Q0M ONE Rx#:[id number] Output: Urine 305 200 100 Other: Voiding Method Indwelling Catheter Indwelling Catheter Weight 60.1 kg Results - Lab Results Most recent lab results ABG pH 7.37 (7.35-7.45) 12/18/20 09:40 ABG pCO2 18 mmHg (35-45) L* 12/18/20 09:40 ABG pO2 56 mmHg (83-108) L* 12/18/20 09:40 ABG HCO3 10 mmol/L (21-25) L* 12/18/20 09:40 ABG O2 Saturation 83.2 % (94-97) L 12/18/20 09:40 Calcium 7.2 mg/dL (8.4-10.2) L 12/19/20 03:33 Magnesium 1.3 mg/dL (1.6-2.3) L 12/18/20 05:16 12/19/20 03:33 12/19/20 03:33 Assessment and Plan Plan: Assessment: 1. Metabolic acidosis with respiratory alkalosis on ABG done December 18. Lactic acidosis from hypotension noted. Acidosis has resolved with bicarbonate drip. 2. Hypokalemia from Lasix and intrasellar shifting from IV bicarb. 3. Hypomagnesemia from poor intake and diuresis. 4. Generalized weakness and ataxia. Neurology following. 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 5. Severe protein calorie malnutrition. 6. UTI maintained on antibiotics. Plan: Potassium and magnesium being replaced. Stop bicarb drip. Normal saline at 75 mL an hour for maintenance fluids. Continue to monitor renal function and urine output. Monitor acid base status. Thank you for the consultation. I will continue to follow the patient with you during her hospital stay.
[2020-12-19] MEDS: ENOXAPARIN 40 MG/0.4 ML SYRINGE SQ SCH (09:18)
[2020-12-19] MEDS: CHLORHEXIDINE GLUCONATE 15 ML CUP MUCOUS MEM SCH ×2 (09:18→20:36)
[2020-12-19] MEDS: NICOTINE 14MG/24HR PATCH TRANSDERM SCH (09:19)
[2020-12-19] MEDS: FAMOTIDINE 20 MG TAB PO SCH ×2 (09:19→20:36)
[2020-12-19] MEDS: methylPREDNISolone SOD SUCCI 40 MG/ML 1 ML VIAL IV SCH ×2 (09:19→20:36)
[2020-12-19] MEDS: FOLIC ACID 1 MG TAB PO SCH (09:19)
[2020-12-19] MEDS: OXYBUTYNIN CHLORIDE 5 MG TAB PO SCH (09:25)
[2020-12-19] MEDS: THIAMINE 100 MG/ML 2 ML VIAL IVP SCH (09:26)
--- NOTE | 2020-12-19 11:07 | P.PN ---
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 Hypotension Altered mental status Paraparesis and ataxia History of alcoholism Megaloblastic anemia Elevated lactic acid UTI 12/19/2020, patient seen eval examined critical care time spent 60 minutes, patient had again episode this morning with fluctuating labile hemodynamics including blood pressure and heart rate, patient become very hypoxic likely aspirated intubated for airway protection and on full ventilator support, chest x-ray shows bilateral dense infiltrate consistent with aspiration pneumonia, unable to get IV access and A-line will put a central line and A-line, patient had infusion with IgG was a stopped as respiratory distress was noted, peripheral mottling was seen which was similar to yesterday morning and but more pronounced, patient has been suspected to have posterior cord syndrome versus Guillain-English, spinal tap was done slightly traumatic with relatively high protein of 62, patient is gently being rehydrated, blood pressure slightly improved with fluid boluses, noted patient was 3.1 which is being repleted, ABG could not be obtained, white cell count is 66-2000 with a hemoglobin of 12, LFTs noted to have a elevated AST of 100, currently patient is on Rocephin and Solu- Medrol DVT prophylaxis and peptic ulcer disease prophylaxis IVIG is on hold This is a 55-year-old female who was seen evaluated examined and fifth floor patient is being transferred to [facility] due to hypertension and mottling of the skin of lower extremity, patient is awake responding to verbal stimuli confused however, review of the data revealed that patient was admitted on December 16 with generalized weakness progressive for the last 10 days, patient has extensive history of spine surgery involving cervical and lumbar fusions, along with chronic back pain it appears that in addition to weakness she has difficulty walking patient was not able to get up stairs due to weakness in the lower extremity, past medical history significant for depression, spine surgery as well as neurosurgery has been evaluating the patient, her covert testing has been negative, she also noted to have elevated lactic acid of 4.4, in the hospital she was noted to have progressive dysarthria, UTI with cystitis, has been on IV Rocephin, status post MRI of the cervical spine which were negative for any significant pathology except MRI of the brain revealing scattered white matter changes, earlier this morning patient noted to be more unresponsive with eyes open she was tachycardic sats 100% on 2 L, blood pressure was 1 3795 however during my evaluation she was noted to have a blood pressure 80/50 with m ottling of skin, lactic acid remains elevated, further data has been obtained patient does have a history of alcohol smoking and substance use and history of seizure disorder, stat labs done this morning white cell count is 8700 hemoglobin and hematocrit is 13.2, MCV is 123, with marked macrocytosis, lactic acid is however during 3.9, mildly elevated AST and ALT of 69 and 38, urine drug screen is positive for opiates, benzodiazepine, marijuana, Objective - Vital Signs Vital signs: Vital Signs Temp 98.2 F 12/19/20 08:00 Pulse 133 H 12/19/20 10:00 Resp 22 12/19/20 10:00 BP 121/100 12/19/20 10:00 Pulse Ox 95 12/19/20 10:00 Intake & Output 12/18/20 12/19/20 12/19/20 18:59 06:59 18:59 Intake Total 350 1456.373 300 Output Total 205 300 155 Balance 145 1156.373 145 Weight 60.1 kg Intake: IV 100 1200 300 Dextrose 5% in Water 1, 1200 150 000 ml @ 125 mls/hr IV . Q9H12M GAURI with Sodium Bicarb (1 Meq/ml) 150 ml Rx#:[id number] Sodium Chloride 0.9% 1, 150 000 ml @ 75 mls/hr IV . [id number] GAURI Rx#:[id number] Intake, IV Titration 250 256.373 Amount Dextrose 5% in Water 1, 250 250 000 ml @ 125 mls/hr IV . Q9H12M GAURI with Sodium Bicarb (1 Meq/ml) 150 ml Rx#:[id number] Immune Globulin ( 6.373 Gammagard) 20 gm In Empty Bag 1 bag @ Titrate IV . Q0M ONE Rx#:[id number] Output: Gastric Drainage 50 Urine 205 300 105 Other: Voiding Method Indwelling Catheter Indwelling Catheter - Exam - Constitutional General appearance: Intubated sedated on full ventilator support- EENT Eyes: EOMI, PERRLA Ears: bilateral: normal - Neck Carotids: bilateral: upstroke normal - Respiratory Respiratory: bilateral: diminished with inspiratory expiratory rales or rhonchi - Cardiovascular Rhythm: regular Heart sounds: normal: S1, S2 - Gastrointestinal General gastrointestinal: decreased bowel sounds, distended, soft - Neurologic Sedated with full ventilator support - Musculoskeletal Musculoskeletal: generalized weakness - Labs CBC & Chem 7: 12/19/20 03:33 12/19/20 03:33 Labs: Abnormal Lab Results - Last 24 Hours (Table) 12/18/20 12/18/20 12/18/20 Range/Units 12:17 16:29 16:45 RBC (3.80-5.40) m/uL MCV (80.0-100.0) fL MCH (25.0-35.0) pg RDW (11.5-15.5) % Plt Count (150-450) k/uL Lymphocytes # (Manual) (1.0-4.8) k/uL Macrocytosis Sodium (137-145) mmol/L Potassium (3.5-5.1) mmol/L BUN (7-17) mg/dL Glucose (74-99) mg/dL POC Glucose (mg/dL) 213 H (75-99) mg/dL Plasma Lactic Acid Vadim 4.2 H* (0.7-2.0) mmol/L Calcium (8.4-10.2) mg/dL AST (14-36) U/L ALT (4-34) U/L Total Protein (6.3-8.2) g/dL Albumin (3.5-5.0) g/dL CSF RBC 1230 H (0-10) u/L CSF Glucose 95 H (40-70) mg/dL CSF Total Protein 62 H (12-60) mg/dL 12/18/20 12/18/20 12/19/20 Range/Units 17:15 Unknown 03:33 RBC 3.36 L (3.80-5.40) m/uL MCV 119.8 H (80.0-100.0) fL MCH 38.3 H (25.0-35.0) pg RDW 15.6 H (11.5-15.5) % Plt Count 104 L (150-450) k/uL Lymphocytes # (Manual) 0.87 L (1.0-4.8) k/uL Macrocytosis Marked A Sodium (137-145) mmol/L Potassium (3.5-5.1) mmol/L BUN (7-17) mg/dL Glucose (74-99) mg/dL POC Glucose (mg/dL) (75-99) mg/dL Plasma Lactic Acid Vadim 2.3 H* 3.0 H* (0.7-2.0) mmol/L Calcium (8.4-10.2) mg/dL AST (14-36) U/L ALT (4-34) U/L Total Protein (6.3-8.2) g/dL Albumin (3.5-5.0) g/dL CSF RBC (0-10) u/L CSF Glucose (40-70) mg/dL CSF Total Protein (12-60) mg/dL 12/19/20 Range/Units 03:33 RBC (3.80-5.40) m/uL MCV (80.0-100.0) fL MCH (25.0-35.0) pg RDW (11.5-15.5) % Plt Count (150-450) k/uL Lymphocytes # (Manual) (1.0-4.8) k/uL Macrocytosis Sodium 134 L (137-145) mmol/L Potassium 3.1 L (3.5-5.1) mmol/L BUN 23 H (7-17) mg/dL Glucose 156 H (74-99) mg/dL POC Glucose (mg/dL) (75-99) mg/dL Plasma Lactic Acid Vadim (0.7-2.0) mmol/L Calcium 7.2 L (8.4-10.2) mg/dL AST 100 H (14-36) U/L ALT 37 H (4-34) U/L Total Protein 4.0 L (6.3-8.2) g/dL Albumin 1.9 L (3.5-5.0) g/dL CSF RBC (0-10) u/L CSF Glucose (40-70) mg/dL CSF Total Protein (12-60) mg/dL Assessment and Plan Assessment: Acute hypoxic respiratory failure Bilateral aspiration pneumonia likely mixed bacterial and gram-negative related Severe sepsis with impending septic shock 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 Patient will need a central line as well as a line Broad-spectrum antibiotics with IV Zosyn and vancomycin Resuscitation with fluids and vasopressors to keep map over 65 and above Follow-up on urine and blood culture Fluid resuscitation with saline Agree with replacement of thiamine, B12 folic acid and MVI Central line A-line Further plan of care as per clinical response of the patient Time with Patient: Greater than 30
[2020-12-19] MEDS ORDERED: SODIUM CHLORIDE 0.9% 500 ML 500 ML IV ONE (11:30)
[2020-12-19 11:48] LABS: ABG Base Excess -12.5 mmol/L; ABG HCO3 16 mmol/L (21-25); ABG Oxygen Saturation 97.9 % (94-97); ABG PCO2 43 mmHg (35-45); ABG PO2 134 mmHg (83-108); ABG TCO2 17 mmol/L (19-24)
--- NOTE | 2020-12-19 11:48 | P.PCN ---
Date of Procedure: 12/19/20 Preoperative Diagnosis: Severe sepsis, aspiration pneumonia Postoperative Diagnosis: As above Procedure(s) Performed: Central line Anesthesia: local Surgeon: Michael Salazar Estimated Blood Loss (ml): 2 Condition: critical Disposition: ICU Indications for Procedure: As above Operative Findings: As below Description of Procedure: Patient prepared and draped in a usual fashion, informed consent obtained procedure explained to the with risk alternative side effect and complication, 1% lidocaine was used to infiltrate the area and right femoral triangle, using a modified Seldinger technique triple-lumen catheter inserted into the right femoral vein without any difficulty or ports are flushed, secured with silk, patient tolerated procedure well no complication noted
--- NOTE | 2020-12-19 11:54 | P.PCN ---
Date of Procedure: 12/19/20 Preoperative Diagnosis: Severe sepsis, aspiration pneumonia Postoperative Diagnosis: As above Procedure(s) Performed: Right femoral arterial line Anesthesia: local Surgeon: Michael Ali Condition: critical Disposition: ICU Indications for Procedure: As above Operative Findings: As below Description of Procedure: Patient prepared and draped in a usual fashion, modified Seldinger technique used to cannulate the right femoral artery without any problem single-lumen catheter inserted, good waveform obtained catheter is secured with silk patient tolerated procedure well no complication noted
[2020-12-19 11:55] LABS: ABG PH 7.18 (7.35-7.45)
[2020-12-19] MEDS ORDERED: SODIUM BICARB 8.4% 50 ML SYR (1 MEQ/ML) IV STA ×2 (11:58→11:59)
[2020-12-19] MEDS ORDERED: DEXTROSE 5% IN WATER 1,000 ML with SODIUM BICARB (1 MEQ/ML) 150 ML IV SCH (12:00)
[2020-12-19 12:25] LABS: Glucose,Whole Blood 168 mg/dL (75-99)
[2020-12-19] MEDS ORDERED: IMMUNE GLOBULIN (GAMMAGARD) 20 GM in EMPTY BAG 1 BAG IV ONE ×2 (13:15→22:00)
[2020-12-19] MEDS: PIPERACILLIN-TAZOBACTAM 3.375 GM in SODIUM CHLORIDE 0.9% 100 ML IVPB SCH ×2 (13:25→20:36)
[2020-12-19] MEDS ORDERED: VANCOMYCIN IV PER PHARMACY 1 EACH MISC MISCELLANE PRN (16:06)
--- NOTE | 2020-12-19 16:08 | P.PN ---
Progress Note - Text Progress Note Date: 12/19/20 Chief Complaint: Difficulty walking History of presenting complaint: This is a 55-year-old patient follows with . Patient is accompanied by her . Patient's had back pain problem for years. She had a cervical spine surgery about 3 years ago and number spine surgery about [address] Sanchez. At her baseline patient does walk slowly without any support. About 10 days ago patient started complaining of pain in the middle of the back. Also noticed progressive weakness of the legs. Her hobbies ago she started having increasing neck pain. also notices same time having some slurred speech. She's always had some tremor which is not exacerbated. Denies any change in bowel or bladder pattern. No trouble swallowing. Patient admitted with neurological combination of symptoms unclear. Lower extremity weakness, upper extremity weakness, some changes speech. Some tremors. Cervical spine MRI, lumbar spine MRI, brain MRI did not show anything acute. Patient is put on IV steroids by Dr. Gee from orthopedics. December 18: Patient episode of jerking and looking to was a ceiling decreased responsiveness. Moved to the ICU. Care was discussed with Dr. Mendez from neurology. It was felt this could be GB syndrome. Lumbar puncture was done. Slightly elevated protein. Immunoglobulins IgG was ordered. Today: Early hours of this morning patient had some respiratory distress and was intubated. It was unclear if this was a adverse reaction to hemoglobin. Dr. Michael Salazar the assistant property manager spoke to Dr. Chen, neurologist educational advisor. Weekend and decided to transfer the patient to a tertiary care center for plasmapheresis. Decision was made to hold off to hemoglobin. Patient's at the bedside. Patient's currently on the ventilator. Patient also aspirated. Put on IV Zosyn Review of systems: Patient intubated Active Medications Acetaminophen (Acetaminophen Tab 325 Mg Tab) 650 mg PO Q6HR PRN PRN Reason: Mild Pain or Fever > 100.5 Alprazolam (Alprazolam 0.5 Mg Tab) 0.5 mg PO TID PRN PRN Reason: Anxiety Last Admin: 12/17/20 20:30 Dose: 0.5 mg Documented by: Chlorhexidine Gluconate (Chlorhexidine Gluconate 15 Ml Cup) 15 ml MUCOUS MEM BID GAURI Last Admin: 12/19/20 09:18 Dose: 15 ml Documented by: Cyanocobalamin (Cyanocobalamin 1,000 Mcg/Ml 1 Ml Vial) 1,000 mcg IM DAILY@2100 [facility] Last Admin: 12/18/20 21:13 Dose: 1,000 mcg Documented by: Enoxaparin Sodium (Enoxaparin 40 Mg/0.4 Ml Syringe) 40 mg SQ DAILY [facility] Last Admin: 12/19/20 09:18 Dose: 40 mg Documented by: Famotidine (Famotidine 20 Mg Tab) 20 mg PO BID [facility] Last Admin: 12/19/20 09:19 Dose: 20 mg Documented by: Folic Acid (Folic Acid 1 Mg Tab) 1 mg PO DAILY [facility] Last Admin: 12/19/20 09:19 Dose: 1 mg Documented by: Sodium Chloride (Saline 0.9%) 1,000 mls @ 75 mls/hr IV .[id number] [facility] Last Admin: 12/18/20 09:41 Dose: 75 mls/hr Documented by: Ceftriaxone Sodium 1 gm/ (Sodium Chloride) 50 mls @ 100 mls/hr IVPB Q24H [facility] Last Admin: 12/18/20 21:14 Dose: 100 mls/hr Documented by: Immune Globulin 20 gm/ IV (Solution) 200 mls @ 0 mls/hr IV .Q0M ONE; Protocol Stop: 12/19/20 22:01 Immune Globulin 20 gm/ IV (Solution) 200 mls @ 0 mls/hr IV .Q0M ONE; Protocol Stop: 12/20/20 22:01 Immune Globulin 20 gm/ IV (Solution) 200 mls @ 0 mls/hr IV .Q0M ONE; Protocol Stop: 12/21/20 22:01 Immune Globulin 20 gm/ IV (Solution) 200 mls @ 0 mls/hr IV .Q0M ONE; Protocol Stop: 12/22/20 22:01 Propofol 1,000 mg/ IV Solution 100 mls @ 0 mls/hr IV .Q0M [facility]; Protocol Piperacillin Sod/Tazobactam (Sod 3.375 gm/ Sodium Chloride) 100 mls @ 25 mls/hr IVPB Q8H [facility] Last Admin: 12/19/20 13:25 Dose: 25 mls/hr Documented by: Sodium Bicarbonate 150 ml/ (Dextrose/Water) 1,150 mls @ 40 mls/hr IV .Q24H [facility] Last Admin: 12/19/20 12:58 Dose: 40 mls/hr Documented by: Immune Globulin 20 gm/ IV (Solution) 200 mls @ 0 mls/hr IV .Q0M NR; Protocol Stop: 12/19/20 23:01 Last Titration: 12/19/20 15:22 Dose: 270 ml/hr, 270 mls/hr Documented by: Ibuprofen (Ibuprofen 400 Mg Tab) 400 mg PO Q6HR PRN PRN Reason: Mild Pain or Fever > 100.5 Ketorolac Tromethamine (Ketorolac 15 Mg/Ml 1 Ml Vial) 15 mg IVP Q6HR PRN PRN Reason: Moderate Pain Stop: 12/19/20 16:08 Last Admin: 12/17/20 20:30 Dose: 15 mg Documented by: Lorazepam (Lorazepam 2 Mg/Ml Inj) 1 mg IV Q2HR PRN PRN Reason: CIWA 8 or 9 Lorazepam (Lorazepam 2 Mg/Ml Inj) 1 mg IV Q1HR PRN PRN Reason: CIWA 10 to 15 Lorazepam (Lorazepam 2 Mg/Ml Inj) 2 mg IV Q10M PRN PRN Reason: CIWA 16 or higher Stop: 12/20/20 05:02 Methylprednisolone Sodium Succinate (Methylprednisolone Sod Succi 40 Mg/Ml 1 Ml Vial) 40 mg IV Q12H [facility] Last Admin: 12/19/20 09:19 Dose: Not Given Documented by: Miscellaneous Information (Potassium Replacement Protocol 1 Each Misc) 1 each MISCELLANE DAILY PRN; Protocol PRN Reason: Per Protocol Morphine Sulfate (Morphine Sulfate 4 Mg/Ml Syringe) 4 mg IV Q4HR PRN PRN Reason: Severe Pain Last Admin: 12/17/20 04:33 Dose: 4 mg Documented by: Naloxone HCl (Naloxone 0.4 Mg/Ml 1 Ml Vial) 0.2 mg IV Q2M PRN PRN Reason: Opioid Reversal Nicotine (Nicotine 14mg/24hr Patch) 1 patch TRANSDERM DAILY [facility] Last Admin: 12/19/20 09:19 Dose: 1 patch Documented by: Ondansetron HCl (Ondansetron 4 Mg/2 Ml Vial) 4 mg IVP Q8HR PRN PRN Reason: Nausea And Vomiting Last Admin: 12/16/20 18:30 Dose: 4 mg Documented by: Thiamine HCl (Thiamine 100 Mg/Ml 2 Ml Vial) 100 mg IVP DAILY GA[facility] Last Admin: 12/19/20 09:26 Dose: 100 mg Documented by: Past medical history to include: Cervical spine or lumbar surgery. Chronic kidney dysfunction Social history: Smokes half a pack a day for many years. Family history: Reviewed, noncontributory to presentation Physical examination: VITAL SIGNS: 98.2, 120, 25, 112/78, 100% on ventilator GENERAL: laying in bed, intubated EYES: Pupils equal. Conjunctiva normal. HEENT: External appearance of nose and ears normal, endotracheal tube NECK: JVD unable to assess; masses not palpable. HEART: First and second heart sounds are normal; no edema. LUNGS:[ Respiratory rate increased, decreased breath sounds. ABDOMEN: Soft, nontender, liver spleen not palpable, no masses palpable. PSYCH: Unable to assess. NEUROLOGICAL: [Cranial nerves grossly intact; no facial asymmetry, [ hyporeflexia. Slurred speech] INVESTIGATIONS, reviewed in the clinical context: December 19: WBC 6.2 hemoglobin 12.9 platelets 104 potassium 3.1 creatinine 0.59 EEG: No epileptiform activity reported/metabolic encephalopathy suggested ABG: PH 7.18 pO2 134 bicarb 16 CO2 17 Cervical spine MRI: Anterior fusion surgery. No spinal stenosis. Nothing acute reported. Brain MRI: Mild atrophy. Lumbar spine MRI: Posterior fusion surgery. X-ray lumbar spine: Postsurgical changes. X-ray cervical spine: Anterior fusion plate at C5 C7. Moderate disc narrowing at C3-C4 and C4-C5. Prominent anterior spur at the inferior C4. Alignment stable. 2-D echocardiogram: EF greater than 55%. WBC 12.6 hemoglobin 15 platelets 193 potassium 3.9 creatinine 0.61 lactic acid 4.4 AST 86 ALT 52 troponin I less than 0.012 UA positive for nitrite, esterase, bacteria Coronavirus [PCR]-not detected EKG tracing personally reviewed by me shows sinus rhythm nonspecific ST segment changes Computed tomography scan of the brain C-spine without contrast: Anterior fusion plate and artificial disc material C5-C7 levels. Moderate disc space narrowing with prominent spurring C4-C5 level. Moderate impression minutes changes. No acute fracture or dislocation reported. 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 Questionable reaction was same. Plan is for patient to get plasmapheresis at the time she Center. Being followed by neurology -Chronic mid back pain Patient has a history of cervical spine and lumbar spine surgery. MRA of the cervical and lumbar spine nonspecific. -Acute on chronic gait dysfunction.-Slow to respond Fall precautions -New onset dysarthria, Brain MRI negative. -Chronic nicotine dependence patient cigarette smoker Nicotine patch -Emphysema in a current smoker, asymptomatic Follow clinically -Macrocytosis Will check B12 and iron studies -Acute UTI with cystitis On IV ceftriaxone -Acute hypoxic respiratory failure, from COPD. -worsening Oxygen supplementation. Now ventilator dependent -Type II lactic acidosis IV fluids -Hypoglycemia from decreased oral intake D5 0.45 IV fluids -Acute metabolic acidosis-slow to respond Getting IV bicarbonate. Consult nephrology. Follow labs - Admitting patient to be transferred to a tertiary center. For plasmapheresis. On the ventilator. Prognosis guarded.
[2020-12-19] MEDS: IPRATROPIUM-ALBUTEROL 3 ML NEB INHALATION SCH ×2 (16:19→20:50)
[2020-12-19] MEDS ORDERED: VANCOMYCIN 1,000 MG in SODIUM CHLORIDE 0.9% 250 ML IVPB SCH (17:00)
--- NOTE | 2020-12-19 18:26 | P.PN ---
Subjective Progress Note Date: 12/19/20 The patient is a 55-year-old female who is seen in neurologic follow- up on December 19, 2020, via teleneurology. The patient's chart has been reviewed. I did receive signout from Dr. Mendez, the neurologist who has been seeing her this past week. He advised me of all the testing that has been completed as well as differential diagnosis and test results. Also, earlier today I spoke with the patient's hospitalist who reported that the patient had an episode of aspiration, then required intubation and while in the process of being intubated, vomited and aspirated again. According to the patient's nurse, the patient has had no purposeful movements. She is on 30 mics of propofol. Her blood pressure has been stable. Prior to intubation and sedation, that night nurse reported that the patient had no visual tracking. The patient has completed one dose of IV IgG. According to the patient's , he reports that his is calmer today. As she is more "puffy and swollen". He reports that his stopped eating 3 days ago. She had no appetite. He reports that she has had increasing weakness over the past month. In the past week, she spiraled and became unable to walk. Objective - Vital Signs Vital signs: Vital Signs Temp 98.2 F 12/19/20 12:00 Pulse 128 H 12/19/20 15:00 Resp 21 12/19/20 15:00 BP 93/49 12/19/20 13:00 Pulse Ox 97 12/19/20 15:00 Intake & Output 12/18/20 12/19/20 12/19/20 18:59 06:59 18:59 Intake Total 350 8249.268 3501.933 Output Total 205 300 270 Balance 145 8453.129 4701.933 Weight 60.1 kg Intake: IV 100 1200 1600 Dextrose 5% in Water 1, 1200 150 000 ml @ 125 mls/hr IV . Q9H12M GAURI with Sodium Bicarb (1 Meq/ml) 150 ml Rx#:[id number] Sodium Chloride 0.9% 1, 1450 000 ml @ 75 mls/hr IV . [id number] GAURI Rx#:[id number] Intake, IV Titration 250 256.373 182.933 Amount Dextrose 5% in Water 1, 250 250 000 ml @ 125 mls/hr IV . Q9H12M GAURI with Sodium Bicarb (1 Meq/ml) 150 ml Rx#:[id number] Immune Globulin ( 182.933 Gammagard) 20 gm In Empty Bag 1 bag @ Titrate IV . Q0M NR Rx#:[id number] Immune Globulin ( 6.373 Gammagard) 20 gm In Empty Bag 1 bag @ Titrate IV . Q0M ONE Rx#:[id number] Output: Gastric Drainage 50 Urine 205 300 220 Other: Voiding Method Indwelling Catheter Indwelling Catheter Indwelling Catheter ABP, PAP, CO, CI - Last Documented Arterial Blood Pressure 103/77 - Exam Gen.: The patient is reclining in the bed. She is intubated and sedated. She is breathing over the vent. HEENT: Head is atraumatic, normocephalic. Fundus not visualized. There is no scleral icterus. Mucous membranes are moist. Extremities: Bilateral hands and feet are cyanotic and cool to touch. There are weak radial pulses. There is pitting edema of the bilateral lower extremities, L> R. Neurological examination Mental status: The patient is nonresponsive to verbal and noxious stimulation. She does not open her eyes. There is a slight grimace to oral suctioning. Cranial nerves: Pupils are equal at 3 mm and reactive. The patient does not blink to visual threat. Cough and gag reflex are intact. Motor: All 4 extremities are flaccid. There is no movement. Sensation: No grimace or withdrawal from noxious stimulation of the extremities. - Labs CBC & Chem 7: 12/19/20 03:33 12/19/20 03:33 Labs: Abnormal Lab Results - Last 24 Hours (Table) 12/18/20 12/18/20 12/18/20 Range/Units 16:29 16:45 17:15 RBC (3.80-5.40) m/uL MCV (80.0-100.0) fL MCH (25.0-35.0) pg RDW (11.5-15.5) % Plt Count (150-450) k/uL Lymphocytes # (Manual) (1.0-4.8) k/uL Macrocytosis ABG pH (7.35-7.45) ABG pO2 (83-108) mmHg ABG HCO3 (21-25) mmol/L ABG Total CO2 (19-24) mmol/L ABG O2 Saturation (94-97) % Sodium (137-145) mmol/L Potassium (3.5-5.1) mmol/L BUN (7-17) mg/dL Glucose (74-99) mg/dL POC Glucose (mg/dL) 213 H (75-99) mg/dL Plasma Lactic Acid Vadim 2.3 H* (0.7-2.0) mmol/L Calcium (8.4-10.2) mg/dL AST (14-36) U/L ALT (4-34) U/L Total Protein (6.3-8.2) g/dL Albumin (3.5-5.0) g/dL CSF RBC 1230 H (0-10) u/L CSF Glucose 95 H (40-70) mg/dL CSF Total Protein 62 H (12-60) mg/dL 12/18/20 12/19/20 12/19/20 Range/Units Unknown 03:33 03:33 RBC 3.36 L (3.80-5.40) m/uL MCV 119.8 H (80.0-100.0) fL MCH 38.3 H (25.0-35.0) pg RDW 15.6 H (11.5-15.5) % Plt Count 104 L (150-450) k/uL Lymphocytes # (Manual) 0.87 L (1.0-4.8) k/uL Macrocytosis Marked A ABG pH (7.35-7.45) ABG pO2 (83-108) mmHg ABG HCO3 (21-25) mmol/L ABG Total CO2 (19-24) mmol/L ABG O2 Saturation (94-97) % Sodium 134 L (137-145) mmol/L Potassium 3.1 L (3.5-5.1) mmol/L BUN 23 H (7-17) mg/dL Glucose 156 H (74-99) mg/dL POC Glucose (mg/dL) (75-99) mg/dL Plasma Lactic Acid Vadim 3.0 H* (0.7-2.0) mmol/L Calcium 7.2 L (8.4-10.2) mg/dL AST 100 H (14-36) U/L ALT 37 H (4-34) U/L Total Protein 4.0 L (6.3-8.2) g/dL Albumin 1.9 L (3.5-5.0) g/dL CSF RBC (0-10) u/L CSF Glucose (40-70) mg/dL CSF Total Protein (12-60) mg/dL 12/19/20 12/19/20 Range/Units 11:40 12:07 RBC (3.80-5.40) m/uL MCV (80.0-100.0) fL MCH (25.0-35.0) pg RDW (11.5-15.5) % Plt Count (150-450) k/uL Lymphocytes # (Manual) (1.0-4.8) k/uL Macrocytosis ABG pH 7.18 L* (7.35-7.45) ABG pO2 134 H (83-108) mmHg ABG HCO3 16 L (21-25) mmol/L ABG Total CO2 17 L (19-24) mmol/L ABG O2 Saturation 97.9 H (94-97) % Sodium (137-145) mmol/L Potassium (3.5-5.1) mmol/L BUN (7-17) mg/dL Glucose (74-99) mg/dL POC Glucose (mg/dL) 168 H (75-99) mg/dL Plasma Lactic Acid Vadim (0.7-2.0) mmol/L Calcium (8.4-10.2) mg/dL AST (14-36) U/L ALT (4-34) U/L Total Protein (6.3-8.2) g/dL Albumin (3.5-5.0) g/dL CSF RBC (0-10) u/L CSF Glucose (40-70) mg/dL CSF Total Protein (12-60) mg/dL Microbiology - Last 24 Hours (Table) 12/19/20 07:17 Sputum Culture - Preliminary Sputum 12/18/20 09:16 Blood Culture - Preliminary Blood No Growth after 24 hours Assessment and Plan Assessment: 1. 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 Aspiration pneumonia requiring intubation 3. Hypotension 4. Metabolic acidosis 5. History of chronic back pain and degenerative spine, status post multiple surgeries Plan: 1. Agree with transfer to a facility where plasmapheresis is available, as well as EMG testing 2. Care options and plan discussed with the who is at the bedside at the time of my evaluation. Time with Patient: Less than 30 (spent 25 minutes with patient via teleneurology)
[2020-12-19 18:45] LABS: Glucose,Whole Blood 120 mg/dL (75-99)
[2020-12-19 20:08] VITALS: BP 75/61; TEMP 98.7
[2020-12-19] MEDS: SODIUM CHLORIDE 0.9% 1,000 ML IV SCH (20:22)
[2020-12-19] MEDS: CYANOCOBALAMIN 1,000 MCG/ML 1 ML VIAL IM SCH (21:28)
[2020-12-19] MEDS ORDERED: SODIUM CHLORIDE 0.9% 1,000 ML IV ONE (21:58)
[2020-12-19] MEDS ORDERED: IMMUNE GLOBULIN (GAMMAGARD) 5 GM in EMPTY BAG 1 BAG IV ONE (22:00)
[2020-12-19 23:02] VITALS: PULSE 126; RESP 20
[2020-12-20] MEDS ORDERED: VANCOMYCIN TROUGH DUE 1 EACH MISC MISCELLANE ONE (16:00)
[2020-12-20] MEDS ORDERED: IMMUNE GLOBULIN (GAMMAGARD) 20 GM in EMPTY BAG 1 BAG IV ONE (22:00)
[2020-12-20] MEDS ORDERED: IMMUNE GLOBULIN (GAMMAGARD) 5 GM in EMPTY BAG 1 BAG IV ONE (22:00)
[2020-12-21] MEDS ORDERED: IMMUNE GLOBULIN (GAMMAGARD) 20 GM in EMPTY BAG 1 BAG IV ONE (22:00)
[2020-12-21] MEDS ORDERED: IMMUNE GLOBULIN (GAMMAGARD) 5 GM in EMPTY BAG 1 BAG IV ONE (22:00)
[2020-12-22 14:33] LABS: IgG Synthesis Rate 6.75 mg/day (0.00 - 3.00); IgG/Albumin Index (CSF) 0.69 (0.00 - 0.77); Immunoglobulin G 649 mg/dL (700 - 1600)
[2020-12-22] MEDS ORDERED: IMMUNE GLOBULIN (GAMMAGARD) 5 GM in EMPTY BAG 1 BAG IV ONE (22:00)
[2020-12-22] MEDS ORDERED: IMMUNE GLOBULIN (GAMMAGARD) 20 GM in EMPTY BAG 1 BAG IV ONE (22:00)
== END 2020-12-19 23:00 | disposition short-term general hospital (02) | DRG 94 ==
LOC: EC 13:56 → 5NMEDONC 16:55 → OBSVTOIN 21:36 → 3SCARD 12-18 08:22 → 2SICU 12-18 16:32
PROVIDERS: ADMIT Hospitalist; ATTEND Hospitalist
PROC: HZ2ZZZZ Detoxification Services for Substance Abuse Treatment (ICD-10-PCS; 2020-12-18)
PROC: 009U3ZX Drainage of Spinal Canal, Percutaneous Approach, Diagnostic (ICD-10-PCS; 2020-12-18)
PROC: 5A1935Z Respiratory Ventilation, Less than 24 Consecutive Hours (ICD-10-PCS; principal; 2020-12-19)
PROC: 0BH17EZ Insertion of Endotracheal Airway into Trachea, Via Natural or Artificial Opening (ICD-10-PCS; principal; 2020-12-19)
PROC: 4A133B1 Monitoring of Arterial Pressure, Peripheral, Percutaneous Approach (ICD-10-PCS; 2020-12-19)
PROC: 4A133J1 Monitoring of Arterial Pulse, Peripheral, Percutaneous Approach (ICD-10-PCS; 2020-12-19)
PROC: 04HY32Z Insertion of Monitoring Device into Lower Artery, Percutaneous Approach (ICD-10-PCS; 2020-12-19)
PROC: 02HV33Z Insertion of Infusion Device into Superior Vena Cava, Percutaneous Approach (ICD-10-PCS; 2020-12-19)
PROC: 0D9670Z Drainage of Stomach with Drainage Device, Via Natural or Artificial Opening (ICD-10-PCS; 2020-12-19)
DX: G61.0 Guillain-Barre syndrome (principal); A41.9 Sepsis, unspecified organism; E43 Unspecified severe protein-calorie malnutrition; J69.0 Pneumonitis due to inhalation of food and vomit; J96.01 Acute respiratory failure with hypoxia; R65.20 Severe sepsis without septic shock; E87.4 Mixed disorder of acid-base balance; F10.239 Alcohol dependence with withdrawal, unspecified; G82.20 Paraplegia, unspecified; G93.40 Encephalopathy, unspecified; D53.1 Other megaloblastic anemias, not elsewhere classified; D75.89 Other specified diseases of blood and blood-forming organs; E16.2 Hypoglycemia, unspecified; Z68.22 Body mass index [BMI] 22.0-22.9, adult; E53.8 Deficiency of other specified B group vitamins; E83.42 Hypomagnesemia; E86.0 Dehydration; E87.6 Hypokalemia; F17.210 Nicotine dependence, cigarettes, uncomplicated; T17.918A Gastric contents in respiratory tract, part unspecified causing other injury, initial encounter; F32.9 Major depressive disorder, single episode, unspecified; J43.9 Emphysema, unspecified; F41.9 Anxiety disorder, unspecified; Z20.822 Contact with and (suspected) exposure to COVID-19; G40.909 Epilepsy, unspecified, not intractable, without status epilepticus; G89.29 Other chronic pain; N30.90 Cystitis, unspecified without hematuria; R47.1 Dysarthria and anarthria; K59.00 Constipation, unspecified; T50.1X5A Adverse effect of loop [high-ceiling] diuretics, initial encounter; Z91.81 History of falling; Z79.899 Other long term (current) drug therapy; Z87.440 Personal history of urinary (tract) infections; Z98.1 Arthrodesis status
CPT/HCPCS: 36415; 36600; 62270; 70450; 70553; 71045; 72040; 72100; 72125; 72148; 72156; 80053; 80306; 81001; 82040; 82042; 82140; 82164; 82550; 82553; 82607; 82728; 82746; 82784; 82805; 82945; 83036; 83519; 83540; 83550; 83605; 83690; 83735; 83873; 83916; 83921; 84132; 84146; 84157; 84207; 84425; 84443; 84484; 85025; 85610; 85652; 85730; 86038; 86140; 86235; 86618; 86780; 87040; 87070; 87205; 87252; 87496; 87498; 87529; 87635; 87798; 89050; 93005; 93306; 93880; 94002; 94640; 95819; 96361; 96374; 99285